=== PATIENT | female | born 1935 | race Caucasian/White ===

== ENCOUNTER 2019-01-02 17:36 | Inpatient (IN) | payer MEDICARE | END 2019-01-05 13:52 | disposition home or self-care (01) | LOC: ER 17:36 → ED HOLD 20:56 → PCU 3S 22:56 | PROC: 4A023N7 Measurement of Cardiac Sampling and Pressure, Left Heart, Percutaneous Approach (ICD-10-PCS; principal; ~2019-01-02) | DX: I21.4 Non-ST elevation (NSTEMI) myocardial infarction (principal); I48.91 Unspecified atrial fibrillation ==

== ENCOUNTER 2019-03-24 04:37 | Observation (INO) | payer MEDICARE ==
[~2019-03-24] VITALS: Ht 152.4 cm; Wt 63.6 kg
[~2019-03-24 04:37] MED LIST: ALEN70TA60 PO; APIX5TAB3 PO; ASPI-1265 PO; ATRNS; CALC-627 PO; CARI350T27 PO; CARV3.12 PO; D MANNOSE PO; DIVA-81 PO; LEVO25PO; LOSA25TA96 PO; NIFE30TA95 PO; NITR0.4T SL; PANT40TA4 PO; ROSU20TA2 PO; premarin VG
[2019-03-24 05:16] LABS: BASOPHILS % (AUTO) 0.6 % (0-1); EOSINOPHILS # (AUTO) 0.2 X10'3 (0-0.9); EOSINOPHILS % (AUTO) 3.6 % (0-6); HEMATOCRIT 39.2 % (35.0-45.0); HEMOGLOBIN 13.5 g/dl (12.0-16.0); LYMPHOCYTES # (AUTO) 1.9 X10'3 (1.1-4.8); MEAN CORPUSCULAR HEMOGLOBIN 32.4 PG (27.0-31.0); MEAN CORPUSCULAR HGB CONC 34.5 g/dL (33.0-36.5); MEAN CORPUSCULAR VOLUME 93.9 FL (78-98); MEAN PLATELET VOLUME 8.5 FL (7.4-10.4); MONOCYTES # (AUTO) 0.6 X10'3 (0-0.9); MONOCYTES % (AUTO) 9.7 % (2-12); NEUTROPHILS # (AUTO) 3.3 X10'3 (1.8-7.7); NEUTROPHILS % (AUTO) 55.1 % (42-75); PLATELET COUNT 336 X10'3 (140-440); RED BLOOD COUNT 4.17 X10'6 (4.20-5.60); RED CELL DISTRIBUTION WIDTH 13.7 % (11.5-14.5)
--- NOTE | 2019-03-24 06:04 | NUR ---
DR. PRICE TALKINIG WITH PT AND FAMILY ABOUT ADMISSION
[2019-03-24 06:05] LABS: PARTIAL THROMBOPLASTIN TIME 32 SECONDS (22-32)
[2019-03-24 06:09] LABS: ALANINE AMINOTRANSFERASE 19 U/L (12-78); ALBUMIN 3.7 G/DL (3.4-5.0); ALBUMIN/GLOBULIN RATIO 1.1 (1.1-1.5); ALKALINE PHOSPHATASE 86 IU/L (46-116); ANION GAP 10 (8-16); ASPARTATE AMINO TRANSFERASE 26 U/L (10-37); BILIRUBIN,TOTAL 0.3 MG/DL (0.1-1.0); BLOOD UREA NITROGEN 18 MG/DL (7-18); BUN/CREATININE RATIO 17.8 (6.6-38.0); CALCIUM 9.3 MG/DL (8.5-10.1); CHLORIDE 102 MMOL/L (99-107); CREATININE 1.01 MG/DL (0.40-0.90); GLUCOSE 96 MG/DL (70-104); SODIUM 136 MMOL/L (135-145); TOTAL CARBON DIOXIDE 23.9 MMOL/L (24-32); TOTAL PROTEIN 7.2 G/DL (6.4-8.2); eGFR 52 ML/MIN
[2019-03-24 06:10] LABS: POTASSIUM 4.3 MMOL/L (3.5-5.1)
[2019-03-24] MEDS ORDERED: nitroGLYCERIN 0.4mg SUBLingual tab SL PRN ×2 (07:45→10:50)
[2019-03-24] MEDS ORDERED: potassium Cl 20 mEq SR tablet PO PRN ×2 (07:45)
[2019-03-24] MEDS ORDERED: magnesium hydroxide 30ml (MOM) UD suspension PO PRN (07:45)
[2019-03-24] MEDS ORDERED: mag hydrox/Alum hydrox/simeth 30ml oral suspension PO PRN (07:45)
[2019-03-24] MEDS ORDERED: potassium Cl 40MEQ/NS 500ml 500 ML IV PRN (07:45)
[2019-03-24] MEDS ORDERED: magnesium Cl slow-release 64mg tablet PO PRN (07:45)
[2019-03-24] MEDS ORDERED: morphine 2 MG/ML inj. syringe IV PRN ×2 (07:45)
[2019-03-24] MEDS ORDERED: magnesium 4gm in 100ml NS 100 ML IV PRN (07:45)
[2019-03-24] MEDS ORDERED: potassium CL 10mEq/100ml bag 100 ML IV PRN (07:45)
[2019-03-24] MEDS ORDERED: acetaminophen 325mg tablet PO PRN ×2 (07:45)
[2019-03-24] MEDS ORDERED: magnesium 2GM in 50ml NS 50 ML IV PRN (07:45)
[2019-03-24] MEDS ORDERED: ondansetron/PF 4mg/2ml inj IV PRN (07:45)
[2019-03-24] MEDS ORDERED: K and/or MAG REPLACEMENT MC SCH (08:00)
[2019-03-24] MEDS ORDERED: losartan 25mg tablet PO SCH ×3 (09:10→20:00)
[2019-03-24] MEDS ORDERED: carVEDilol 3.125mg tablet PO SCH ×3 (09:10→20:00)
[2019-03-24 09:35] VITALS: BP 138/90
--- NOTE | 2019-03-24 10:38 | NUR ---
PAGED FOR MED REC PAGED DR. MOURA- "Re: new admit in [facility]. Patient meds have been reviewed if you can please do reconciliation. thank you, Josephine RIOJAS [phone]"
[2019-03-24] MEDS ORDERED: non-formulary drug (Alendronate Sodium* (Fosamax*) 1 TABLET) PO SCH (10:50)
[2019-03-24] MEDS ORDERED: carvedilol 6.25mg tablet PO SCH ×2 (10:50→20:00)
[2019-03-24] MEDS ORDERED: apixaban 5mg tablet PO ONE (10:50)
[2019-03-24 11:00] VITALS: BP 150/75
[2019-03-24] MEDS: calcium carbonate/vitamin D3 tablet PO SCH ×2 (11:58→17:30)
--- NOTE | 2019-03-24 12:01 | NUR ---
HOLDING ELIQUIS PAGED DR. MOURA- "Re: [facility] in 312. Eliquis ordered but I have not given it incase she needs to go to [facility]? thank you, Josephine [phone]" Addendum: 03/24/19 at 1216 by Josephine Joe RN SPOKE TO DR. MOURA ABOUT PATIENT'S ELIQUIS. IT IS THE PATIENT'S WISHES TO HOLD OFF ON TAKING ELIQUIS UNTIL ALL TROPONIN LAB DRAWS ARE DONE AND RESULTED. PER DR. MOURA THAT IS OKAY AND SHE CAN STAY UNDER OBSERVATION UNTIL TOMORROW NO FURTHER ORDERS/PLAN UNLESS PATIENT HAS CHEST PAIN AGAIN.
--- NOTE | 2019-03-24 12:16 | NUR ---
SPOKE WITH MIGUEL HENDRIX ABOUT PATIENT'S MEDICATIONS. BP 150/75 HR 86. RECEIVED ORDER TO INCREASE COREG TO 6.25 BID.
[2019-03-24 15:00] VITALS: BP 119/75
--- NOTE | 2019-03-24 17:33 | NUR ---
PAGED DR. MOURA, NEG TROP "Re; [facility], in 312. last troponin is negative. patient would like to go home. only increase on Coreg. Thank you, Josephine RIOJAS [phone]"
[2019-03-24 18:00] VITALS: BP 133/86
--- NOTE | 2019-03-24 18:11 | NUR ---
Problems reprioritized. Patient report given, questions answered & plan of care reviewed with LASHON DAVIS.
--- NOTE | 2019-03-24 18:16 | NUR ---
Patient in room MED 312. I have received report from Josephine OATES and had the opportunity to ask questions and assume patient care.
[2019-03-24] MEDS ORDERED: CARV6.253 PO (18:25)
--- NOTE | 2019-03-24 19:10 | NUR ---
Patient given all discharge instructions (her daughter as well) and she stated understanding and agreed with POC. IV to L hand removed, cath intact, no s/s of complications, and pt tolerated well. Pt taken via wheelchair to private vehicle driven by her daughter. They left without incident.
[2019-03-24] MEDS ORDERED: apixaban 5mg tablet PO SCH (20:00)
[2019-03-24] MEDS ORDERED: NIFEdipine XL 30mg tablet PO SCH (21:00)
[2019-03-24] MEDS ORDERED: divalproex sod 250mg ER (24-hour) tablet PO SCH (21:00)
[2019-03-25] MEDS ORDERED: atorvastatin 20mg tablet PO SCH (08:00)
[2019-03-25] MEDS ORDERED: pantoprazole 40mg Tablet.DR PO SCH (08:00)
== END 2019-03-24 19:10 | disposition home or self-care (01) ==
LOC: ER 04:38 → EDBEDREQ 08:38 → INTOOBSV 09:19 → MED 3N 09:19 → UNDOADMOB 09:19 → MED 3N 10:23 → CMPBEDREQ 15:44 → UNDODISOB 19:10
PROVIDERS: ADMIT Internal Medicine Interventional Cardiology; ATTEND Internal Medicine Interventional Cardiology
DX: R07.2 Precordial pain (principal); I48.91 Unspecified atrial fibrillation; I25.10 Atherosclerotic heart disease of native coronary artery without angina pectoris; I10 Essential (primary) hypertension; E78.00 Pure hypercholesterolemia, unspecified; Z88.0 Allergy status to penicillin; Z88.1 Allergy status to other antibiotic agents; Z79.82 Long term (current) use of aspirin
CPT/HCPCS: 36415; 71045; 80053; 84484; 85025; 85610; 85730; 93005; 99284; G0378

== ENCOUNTER 2019-10-18 06:26 | Day surgery (SDC) | payer MEDICARE ==
[2019-10-14 11:29] LABS: BASOPHILS # (AUTO) 0.1 X10'3 (0-0.2); BASOPHILS % (AUTO) 1.2 % (0-1); EOSINOPHILS # (AUTO) 0.1 X10'3 (0-0.9); EOSINOPHILS % (AUTO) 2.5 % (0-6); LYMPHOCYTES # (AUTO) 1.3 X10'3 (1.1-4.8); LYMPHOCYTES % (AUTO) 26.1 % (21-51); MEAN CORPUSCULAR HEMOGLOBIN 32.3 PG (27.0-31.0); MEAN CORPUSCULAR HGB CONC 34.1 g/dL (33.0-36.5); MEAN CORPUSCULAR VOLUME 94.6 FL (78-98); MEAN PLATELET VOLUME 8.9 FL (7.4-10.4); MONOCYTES # (AUTO) 0.4 X10'3 (0-0.9); MONOCYTES % (AUTO) 8.6 % (2-12); NEUTROPHILS # (AUTO) 3.1 X10'3 (1.8-7.7); NEUTROPHILS % (AUTO) 61.6 % (42-75); PRE OP HEMATOCRIT 39.3 % (35.0-45.0); PRE OP HEMOGLOBIN 13.4 g/dL (12.0-16.0); PRE OP PLATELET COUNT 331 X10'3 (140-440); RED BLOOD COUNT 4.16 X10'6 (4.20-5.60); RED CELL DISTRIBUTION WIDTH 13.8 % (11.5-14.5)
[2019-10-14 11:45] LABS: ALBUMIN 3.5 G/DL (3.4-5.0); ALKALINE PHOSPHATASE 62 IU/L (46-116); BLOOD UREA NITROGEN 14 MG/DL (7-18); BUN/CREATININE RATIO 15.9 (6.6-38.0); CALCIUM 9.1 MG/DL (8.5-10.1); CHLORIDE 107 MMOL/L (99-107); CREATININE 0.88 MG/DL (0.40-0.90); PRE OP ALT 20 U/L (30-65); PRE OP ANION GAP 7 (8-16); PRE OP AST 21 U/L (10-37); PRE OP BILIRUB, TOTAL 0.3 MG/DL (0.0-1.0); PRE OP GLUCOSE 81 MG/DL (70-104); PRE OP POTASSIUM 3.4 MMOL/L (3.4-5.1); PRE OP SODIUM 144 MMOL/L (135-145); eGFR 62 ML/MIN
[~2019-10-18] VITALS: Ht 152.4 cm; Wt 61.2 kg
[2019-10-18] VITALS (10 sets, daily range): BP systolic 113–140; BP diastolic 65–83
[~2019-10-18 06:26] MED LIST changes: -ASPI-1265 PO; -ATRNS; -CARI350T27 PO; -CARV3.12 PO; +CARV3.122 PO; -D MANNOSE PO; +IPRA30SP; +ISOS10TA8 PO; +L CARNITINE PO; +LACT1CAP65 PO; -LEVO25PO; +METHYL PRO PO; -NITR0.4T SL; +NITR0.4T48 SL; -PANT40TA4 PO; +PREVCR VG; +clindamycin-Cleocin 900mg/D5W 50 ML IV ONE; +famotidine 10mg tablet PO ONE; -premarin VG; +ringers solution, lacted 1,000 ML IV SCH
[2019-10-18] MEDS ORDERED: sevoflurane 250ml liquid IH ONE (08:10)
[2019-10-18] MEDS ORDERED: fentaNYL/PF 50MCG/1 ML 2ML syringe ONE (08:11)
[2019-10-18] MEDS ORDERED: midazolam 2 mg/2 ml injection ONE (08:12)
[2019-10-18] MEDS ORDERED: rocuronium 10mg/ml inj IV ONE (08:24)
[2019-10-18] MEDS ORDERED: propofol inj 20 ML IV ONE (08:24)
[2019-10-18] MEDS ORDERED: dexamethasone sod phosphate 4mg/ml inj. ONE (08:24)
[2019-10-18] MEDS ORDERED: LIDOcaine 1% 30ml preserv. free vial ONE (08:57)
[2019-10-18] MEDS ORDERED: BUPIVAcaine/PF 2.5 mg/ml (0.25%) 30ml vial ONE (08:57)
[2019-10-18] MEDS ORDERED: ringers solution, lacted 1,000 ML IV SCH (09:07)
[2019-10-18] MEDS ORDERED: ondansetron/PF 4mg/2ml inj IV PRN (09:10)
[2019-10-18] MEDS ORDERED: meperidine/PF 25mg/ml syringe IV PRN ×3 (09:10)
[2019-10-18] MEDS ORDERED: proCHLORperazine 10 MG/2 ml inj IV PRN (09:10)
[2019-10-18] MEDS ORDERED: morphine 4 MG/ML inj SYRINge IV PRN ×2 (09:10)
[2019-10-18] MEDS ORDERED: ondansetron/PF 4mg/2ml inj ONE (09:24)
[2019-10-18] MEDS ORDERED: sugammadex 200mg/2ml injection IV ONE (09:29)
[2019-10-18] MEDS ORDERED: HYDROcodone/acetaminophen 5mg/325mg tablet PO PRN (09:45)
--- NOTE | 2019-10-18 09:45 | NUR ---
ADMITTED TO PACU FROM OR ACCOMPANIED BY ANESTHESIA. INTIAL PHYSICAL ASSESSMENT DONE AND RECORDED. REPORT RECEIVED FROM ANESTHESIA.
--- NOTE | 2019-10-18 11:15 | NUR ---
DISCHARGE CRITERIA MET, DISCHARGE INSTRUCTIONS GIVEN, DEMONSTRATES VERBAL UNDERSTANDING. DISCHARGED HOME IN GOOD CONDITION. RX CALLED TO [facility] FOR ZOFRAN 4MG Q6HR #30. DISCHARGED WITH PAIN RESLOVED ACCOMPANIED BY FAMILY
== END 2019-10-18 11:15 | disposition home or self-care (01) ==
LOC: PAS 06:26
PROVIDERS: ATTEND Surgery
DX: K43.2 Incisional hernia without obstruction or gangrene (principal); I10 Essential (primary) hypertension; I48.91 Unspecified atrial fibrillation; I25.10 Atherosclerotic heart disease of native coronary artery without angina pectoris; G47.30 Sleep apnea, unspecified; I25.2 Old myocardial infarction; G43.909 Migraine, unspecified, not intractable, without status migrainosus; M19.90 Unspecified osteoarthritis, unspecified site; Z86.73 Personal history of transient ischemic attack (TIA), and cerebral infarction without residual deficits; Z79.899 Other long term (current) drug therapy; Z88.0 Allergy status to penicillin; Z88.2 Allergy status to sulfonamides; Z88.8 Allergy status to other drugs, medicaments and biological substances; Z88.1 Allergy status to other antibiotic agents; Z90.710 Acquired absence of both cervix and uterus; Z96.643 Presence of artificial hip joint, bilateral; Z98.41 Cataract extraction status, right eye; Z98.42 Cataract extraction status, left eye; Z98.1 Arthrodesis status
CPT/HCPCS: 36415; 49654; 80053; 82948; 85025; C1781; C9399; J1100; J2001; J2175; J2250; J2405; J2704; J3010; J3490; J7120; S2900; A4215; A4618

== ENCOUNTER 2020-10-11 12:04 | Emergency (ER) | payer MEDICARE ==
[~2020-10-11] VITALS: Ht 152.4 cm; Wt 59.1 kg
[~2020-10-11 12:04] MED LIST changes: -ISOS10TA8 PO; +ISOS30TA6 PO; -L CARNITINE PO; +LEVO500T86 PO; -LOSA25TA96 PO; +MULT-687 PO; -ROSU20TA2 PO; +ROSU20TA31 PO; +TIOT4MIS2 IH; -clindamycin-Cleocin 900mg/D5W 50 ML IV ONE; -famotidine 10mg tablet PO ONE; -ringers solution, lacted 1,000 ML IV SCH
--- NOTE | 2020-10-11 12:29 | NUR ---
patient's son Rasheed Murray phone number [phone]
[2020-10-11 13:11] LABS: BASOPHILS # (AUTO) 0.1 X10'3 (0-0.2); BASOPHILS % (AUTO) 1.4 % (0-1); EOSINOPHILS # (AUTO) 0.2 X10'3 (0-0.9); EOSINOPHILS % (AUTO) 2.6 % (0-6); HEMATOCRIT 38.9 % (35.0-45.0); HEMOGLOBIN 13.2 g/dl (12.0-16.0); LYMPHOCYTES # (AUTO) 1.6 X10'3 (1.1-4.8); LYMPHOCYTES % (AUTO) 26.8 % (21-51); MEAN CORPUSCULAR HEMOGLOBIN 32.2 PG (27.0-31.0); MEAN CORPUSCULAR VOLUME 94.9 FL (78-98); MEAN PLATELET VOLUME 8.5 FL (7.4-10.4); MONOCYTES # (AUTO) 0.6 X10'3 (0-0.9); MONOCYTES % (AUTO) 10.4 % (2-12); NEUTROPHILS # (AUTO) 3.6 X10'3 (1.8-7.7); NEUTROPHILS % (AUTO) 58.8 % (42-75); PLATELET COUNT 382 X10'3 (140-440); RED CELL DISTRIBUTION WIDTH 14.3 % (11.5-14.5); WHITE BLOOD COUNT 6.1 X10'3 (4.5-11.0)
[2020-10-11] MEDS ORDERED: acetaminophen 325mg tablet PO ONE (13:25)
[2020-10-11 13:33] LABS: ALANINE AMINOTRANSFERASE 26 U/L (12-78); ALBUMIN 3.7 G/DL (3.4-5.0); ALKALINE PHOSPHATASE 74 IU/L (46-116); ANION GAP 11 (8-16); ASPARTATE AMINO TRANSFERASE 27 U/L (10-37); BILIRUBIN,TOTAL 0.4 MG/DL (0.1-1.0); BLOOD UREA NITROGEN 16 MG/DL (7-18); CALCIUM 9.2 MG/DL (8.5-10.1); CHLORIDE 107 MMOL/L (99-107); CREATININE 0.84 MG/DL (0.40-0.90); GLUCOSE 92 MG/DL (70-104); POTASSIUM 3.8 MMOL/L (3.5-5.1); SODIUM 144 MMOL/L (135-145); TOTAL CARBON DIOXIDE 26.1 MMOL/L (24-32); TOTAL PROTEIN 7.3 G/DL (6.4-8.2); eGFR 65 ML/MIN
[2020-10-11] MEDS ORDERED: iohexol 350MG/ML 100ml bottle IV ONE (14:55)
--- NOTE | 2020-10-11 15:58 | NUR ---
pT GAVE VERBAL CONSENT TO UPDATE FAMILY ON STATUS. SPOKE WITH DEZ, SON WITH DX. HE REQUESTED SISTER FUAD [phone]) BE CONTACTED FOR TRANSPORT, UNDERSTANDING IT WILL BE ABOUT 45 MINUTES FROM TIME OF CONTACT. Addendum: 10/11/20 at 1711 by RSTEWART ec: DAUGHTER'S NAME IS Yessica, NOT Fuad
[2020-10-11] MEDS ORDERED: oxyCODONE IR 5mg (immed. release) tablet PO ONE (16:05)
--- NOTE | 2020-10-11 17:11 | NUR ---
MIGUEL CONTACTED FOR TRANSPORTATION
[2020-10-11 17:26] VITALS: BP 166/90
== END 2020-10-11 17:47 | disposition home or self-care (01) ==
LOC: ER 12:05
DX: M54.6 Pain in thoracic spine (principal); R07.89 Other chest pain; R51.9 Headache, unspecified; I48.91 Unspecified atrial fibrillation; I25.10 Atherosclerotic heart disease of native coronary artery without angina pectoris; E78.00 Pure hypercholesterolemia, unspecified; I10 Essential (primary) hypertension; Z88.2 Allergy status to sulfonamides; Z88.0 Allergy status to penicillin; Z88.1 Allergy status to other antibiotic agents; Z88.8 Allergy status to other drugs, medicaments and biological substances; Z79.899 Other long term (current) drug therapy
CPT/HCPCS: 36415; 71045; 71275; 80053; 83880; 84484; 85025; 93005; 99285; Q9967

== ENCOUNTER 2021-07-26 19:11 | Emergency (ER) | payer MEDICARE ==
[~2021-07-26] VITALS: Ht 152.4 cm; Wt 55.0 kg
[~2021-07-26 19:11] MED LIST changes: -ISOS30TA6 PO; +ISOS30TA84 PO
[2021-07-26] MEDS ORDERED: DIVA500T9 PO (20:03)
[2021-07-26 20:41] LABS: BASOPHILS # (AUTO) 0.1 X10'3 (0-0.2); BASOPHILS % (AUTO) 1.3 % (0-1); EOSINOPHILS # (AUTO) 0.2 X10'3 (0-0.9); EOSINOPHILS % (AUTO) 3.6 % (0-6); HEMATOCRIT 38.4 % (35.0-45.0); HEMOGLOBIN 13.2 g/dl (12.0-16.0); LYMPHOCYTES # (AUTO) 1.9 X10'3 (1.1-4.8); LYMPHOCYTES % (AUTO) 28.7 % (21-51); MEAN CORPUSCULAR HEMOGLOBIN 33.4 PG (27.0-31.0); MEAN CORPUSCULAR HGB CONC 34.4 g/dL (33.0-36.5); MEAN PLATELET VOLUME 8.8 FL (7.4-10.4); MONOCYTES # (AUTO) 0.8 X10'3 (0-0.9); MONOCYTES % (AUTO) 12.4 % (2-12); NEUTROPHILS # (AUTO) 3.5 X10'3 (1.8-7.7); PLATELET COUNT 414 X10'3 (140-440); RED BLOOD COUNT 3.96 X10'6 (4.20-5.60); RED CELL DISTRIBUTION WIDTH 15.3 % (11.5-14.5); WHITE BLOOD COUNT 6.5 X10'3 (4.5-11.0)
[2021-07-26 20:48] LABS: D-DIMER < 0.19 MG/L FEU (0-0.50)
[2021-07-26 20:53] LABS: ALANINE AMINOTRANSFERASE 21 U/L (12-78); ALBUMIN/GLOBULIN RATIO 0.9 (1.1-1.5); ALKALINE PHOSPHATASE 73 IU/L (46-116); ANION GAP 6 (8-16); ASPARTATE AMINO TRANSFERASE 21 U/L (10-37); BILIRUBIN,TOTAL 0.3 MG/DL (0.1-1.0); BLOOD UREA NITROGEN 24 MG/DL (7-18); CALCIUM 8.4 MG/DL (8.5-10.1); CHLORIDE 104 MMOL/L (99-107); CREATININE 0.96 MG/DL (0.40-0.90); GLUCOSE 101 MG/DL (70-104); SODIUM 141 MMOL/L (135-145); TOTAL CARBON DIOXIDE 30.6 MMOL/L (24-32); TOTAL PROTEIN 6.4 G/DL (6.4-8.2); eGFR 55 ML/MIN
[2021-07-26 21:06] LABS: MAGNESIUM 2.3 MG/DL (1.5-2.4)
[2021-07-26] MEDS ORDERED: mag hydrox/Alum hydrox/simeth 30ml oral suspension PO ONE (21:30)
[2021-07-26 22:12] VITALS: BP 155/87
== END 2021-07-26 22:14 | disposition home or self-care (01) ==
LOC: ER 19:11
DX: R07.89 Other chest pain (principal); Z20.822 Contact with and (suspected) exposure to COVID-19; R11.0 Nausea; I10 Essential (primary) hypertension; I48.91 Unspecified atrial fibrillation; I25.10 Atherosclerotic heart disease of native coronary artery without angina pectoris; E78.00 Pure hypercholesterolemia, unspecified; J45.909 Unspecified asthma, uncomplicated; Z88.0 Allergy status to penicillin; Z88.2 Allergy status to sulfonamides; Z88.8 Allergy status to other drugs, medicaments and biological substances; Z88.1 Allergy status to other antibiotic agents; Z79.899 Other long term (current) drug therapy
CPT/HCPCS: 36415; 71045; 80053; 83735; 83880; 84484; 85025; 85379; 85610; 87635; 93005; 99285; C9803

== ENCOUNTER 2021-11-06 20:30 | Emergency (ER) | payer MEDICARE ==
[~2021-11-06] VITALS: Ht 152.4 cm; Wt 55.0 kg
[~2021-11-06 20:30] MED LIST changes: -DIVA-81 PO; +DIVA500T9 PO; -NIFE30TA95 PO
[2021-11-06 22:02] LABS: BASOPHILS % (AUTO) 0.3 % (0-1); EOSINOPHILS # (AUTO) 0.1 X10'3 (0-0.9); EOSINOPHILS % (AUTO) 2.3 % (0-6); HEMATOCRIT 39.6 % (35.0-45.0); HEMOGLOBIN 13.6 g/dl (12.0-16.0); LYMPHOCYTES # (AUTO) 1.6 X10'3 (1.1-4.8); LYMPHOCYTES % (AUTO) 30.2 % (21-51); MEAN CORPUSCULAR HEMOGLOBIN 33.4 PG (27.0-31.0); MEAN CORPUSCULAR HGB CONC 34.4 g/dL (33.0-36.5); MEAN CORPUSCULAR VOLUME 97.1 FL (78-98); MEAN PLATELET VOLUME 7.8 FL (7.4-10.4); MONOCYTES # (AUTO) 0.6 X10'3 (0-0.9); MONOCYTES % (AUTO) 10.7 % (2-12); NEUTROPHILS # (AUTO) 3.1 X10'3 (1.8-7.7); NEUTROPHILS % (AUTO) 56.5 % (42-75); PLATELET COUNT 484 X10'3 (140-440); RED BLOOD COUNT 4.08 X10'6 (4.20-5.60); RED CELL DISTRIBUTION WIDTH 14.1 % (11.5-14.5); WHITE BLOOD COUNT 5.4 X10'3 (4.5-11.0)
[2021-11-06 22:15] LABS: CLARITY,URINE CLOUDY (Clear); GLUCOSE, URINE NEGATIVE (Neg); KETONES,URINE NEGATIVE (Neg); LEUKOCYTE ESTERASE ,URINE TRACE (Neg); NITRITES, URINE NEGATIVE (Neg); OCCULT BLOOD,URINE SMALL (Neg); PH,URINE 7.5 (4.8-8.0); PROTEIN,URINE NEGATIVE (Neg); UROBILINOGEN,URINE 0.2 E.U/dL (0.2-1.0)
[2021-11-06 22:15] LABS: ALANINE AMINOTRANSFERASE 17 U/L (12-78); ALBUMIN 3.5 G/DL (3.4-5.0); ALBUMIN/GLOBULIN RATIO 1.1 (1.1-1.5); ALKALINE PHOSPHATASE 72 IU/L (46-116); ANION GAP 9 (8-16); ASPARTATE AMINO TRANSFERASE 22 U/L (10-37); BILIRUBIN,TOTAL 0.3 MG/DL (0.1-1.0); BLOOD UREA NITROGEN 19 MG/DL (7-18); BUN/CREATININE RATIO 24.4 (6.6-38.0); CALCIUM 9.1 MG/DL (8.5-10.1); CHLORIDE 105 MMOL/L (99-107); CREATININE 0.78 MG/DL (0.40-0.90); GLUCOSE 113 MG/DL (70-104); POTASSIUM 3.5 MMOL/L (3.5-5.1); SODIUM 140 MMOL/L (135-145); TOTAL CARBON DIOXIDE 25.9 MMOL/L (24-32); TOTAL PROTEIN 6.7 G/DL (6.4-8.2); eGFR 70 ML/MIN
[2021-11-06 22:16] LABS: COLOR,URINE STRAW (Yellow); UA COLLECTION TYPE CLN CATCH MIDSTREAM
[2021-11-06 22:21] LABS: SQUAMOUS EPITHELIAL CELL,UR FEW /LPF (FEW)
[2021-11-06 22:23] LABS: BACTERIA,URINE 4+ /HPF (Neg); WBC,URINE 0-4 /HPF (0-4)
[2021-11-06] MEDS ORDERED: potassium Cl 20 mEq SR tablet PO STA (22:34)
[2021-11-06] MEDS ORDERED: acetaminophen 325mg tablet PO ONE (22:40)
[2021-11-06 23:10] VITALS: BP 152/96
== END 2021-11-06 23:14 | disposition home or self-care (01) ==
LOC: ER 20:31
DX: E87.6 Hypokalemia (principal); R00.2 Palpitations; R06.02 Shortness of breath; R51.9 Headache, unspecified; I48.91 Unspecified atrial fibrillation; I25.10 Atherosclerotic heart disease of native coronary artery without angina pectoris; E78.00 Pure hypercholesterolemia, unspecified; I10 Essential (primary) hypertension; J45.909 Unspecified asthma, uncomplicated; Z88.0 Allergy status to penicillin; Z88.2 Allergy status to sulfonamides; Z88.1 Allergy status to other antibiotic agents; Z88.8 Allergy status to other drugs, medicaments and biological substances; Z79.899 Other long term (current) drug therapy
CPT/HCPCS: 36415; 71045; 80053; 81001; 83880; 84484; 85025; 87077; 87088; 87186; 93005; 99285

== ENCOUNTER 2022-04-09 16:15 | Emergency (ER) | payer MEDICARE ==
[~2022-04-09] VITALS: Ht 152.4 cm; Wt 55.5 kg
[2022-04-09 17:38] LABS: BASOPHILS # (AUTO) 0.1 X10'3 (0-0.2); BASOPHILS % (AUTO) 1.5 % (0-1); EOSINOPHILS # (AUTO) 0.1 X10'3 (0-0.9); EOSINOPHILS % (AUTO) 1.9 % (0-6); HEMATOCRIT 40.9 % (35.0-45.0); HEMOGLOBIN 14.1 g/dl (12.0-16.0); LYMPHOCYTES # (AUTO) 1.4 X10'3 (1.1-4.8); LYMPHOCYTES % (AUTO) 21.9 % (21-51); MEAN CORPUSCULAR HGB CONC 34.4 g/dL (33.0-36.5); MONOCYTES # (AUTO) 0.6 X10'3 (0-0.9); MONOCYTES % (AUTO) 9.7 % (2-12); NEUTROPHILS # (AUTO) 4.1 X10'3 (1.8-7.7); PLATELET COUNT 545 X10'3 (140-440); RED BLOOD COUNT 4.26 X10'6 (4.20-5.60); RED CELL DISTRIBUTION WIDTH 15.1 % (11.5-14.5); WHITE BLOOD COUNT 6.3 X10'3 (4.5-11.0)
[2022-04-09 17:54] LABS: ALANINE AMINOTRANSFERASE 14 U/L (12-78); ALBUMIN 3.6 G/DL (3.4-5.0); ALKALINE PHOSPHATASE 72 IU/L (46-116); ANION GAP 8 (8-16); ASPARTATE AMINO TRANSFERASE 23 U/L (10-37); BILIRUBIN,TOTAL 0.3 MG/DL (0.1-1.0); BLOOD UREA NITROGEN 17 MG/DL (7-18); BUN/CREATININE RATIO 20.2 (6.6-38.0); CALCIUM 8.9 MG/DL (8.5-10.1); CHLORIDE 101 MMOL/L (99-107); CREATININE 0.84 MG/DL (0.40-0.90); GLUCOSE 92 MG/DL (70-104); POTASSIUM 3.8 MMOL/L (3.5-5.1); SODIUM 138 MMOL/L (135-145); TOTAL CARBON DIOXIDE 28.8 MMOL/L (24-32); TOTAL PROTEIN 7.2 G/DL (6.4-8.2); eGFR 64 ML/MIN
[2022-04-09] MEDS ORDERED: cloNIDine 0.1 mg tablet PO STA (17:57)
[2022-04-09 19:13] VITALS: BP 164/100
== END 2022-04-09 18:47 | disposition home or self-care (01) ==
LOC: ER 16:16
DX: I10 Essential (primary) hypertension (principal); R51.9 Headache, unspecified; R42 Dizziness and giddiness; I48.91 Unspecified atrial fibrillation; I25.10 Atherosclerotic heart disease of native coronary artery without angina pectoris; E78.00 Pure hypercholesterolemia, unspecified; J45.909 Unspecified asthma, uncomplicated; Z88.0 Allergy status to penicillin; Z88.2 Allergy status to sulfonamides; Z88.1 Allergy status to other antibiotic agents; Z88.8 Allergy status to other drugs, medicaments and biological substances; Z79.899 Other long term (current) drug therapy
CPT/HCPCS: 36415; 71045; 80053; 84484; 85025; 93005; 99285

== ENCOUNTER 2023-08-12 12:37 | Outpatient (CLI) | payer MEDICARE ==
[~2023-08-12 12:37] MED LIST changes: +LEVO-43 PO; -LEVO500T86 PO; -ROSU20TA31 PO; +ROSU20TA73 PO
== END 2023-08-12 23:59 | disposition home or self-care (01) ==
LOC: RAD 12:37
PROVIDERS: ATTEND Nurse Practitioner Family
DX: R13.12 Dysphagia, oropharyngeal phase (principal); R49.0 Dysphonia
CPT/HCPCS: 74230

== ENCOUNTER 2024-01-15 19:09 | Inpatient (IN) | payer MEDICARE ==
[~2024-01-15] VITALS: Ht 152.4 cm; Wt 70.7 kg
[~2024-01-15 19:09] MED LIST changes: -CALC-627 PO; -CARV3.122 PO; +CARV6.2553 PO; +FERR325T29 PO; +LEVO15TA5 PO; -METHYL PRO PO; +OSC500T PO; -TIOT4MIS2 IH
[2024-01-15 20:02] LABS: URINE HCG NEGATIVE (NEG)
[2024-01-15 20:14] LABS: BILIRUBIN,URINE NEGATIVE (Neg); CLARITY,URINE CLEAR (Clear); COLOR,URINE STRAW (Yellow); GLUCOSE, URINE NEGATIVE (Neg); KETONES,URINE NEGATIVE (Neg); LEUKOCYTE ESTERASE ,URINE NEGATIVE (Neg); NITRITES, URINE NEGATIVE (Neg); OCCULT BLOOD,URINE SMALL (Neg); PH,URINE 7.5 (4.8-8.0); PROTEIN,URINE NEGATIVE (Neg); UROBILINOGEN,URINE 0.2 E.U/dL (0.2-1.0)
[2024-01-15 20:21] LABS: BASOPHILS % (AUTO) 0.9 % (0-1); EOSINOPHILS # (AUTO) 0.1 X10'3 (0-0.9); HEMATOCRIT 39.6 % (35.0-45.0); HEMOGLOBIN 13.4 g/dl (12.0-16.0); LYMPHOCYTES # (AUTO) 1.8 X10'3 (1.1-4.8); LYMPHOCYTES % (AUTO) 40.6 % (21-51); MEAN CORPUSCULAR HEMOGLOBIN 32.8 PG (27.0-31.0); MEAN CORPUSCULAR HGB CONC 33.9 g/dL (33.0-36.5); MEAN CORPUSCULAR VOLUME 96.9 FL (78-98); MEAN PLATELET VOLUME 7.5 FL (7.4-10.4); MONOCYTES # (AUTO) 0.5 X10'3 (0-0.9); MONOCYTES % (AUTO) 11.6 % (2-12); NEUTROPHILS % (AUTO) 44.9 % (42-75); PLATELET COUNT 532 X10'3 (140-440); RED BLOOD COUNT 4.09 X10'6 (4.20-5.60); RED CELL DISTRIBUTION WIDTH 16.2 % (11.5-14.5); WHITE BLOOD COUNT 4.5 X10'3 (4.5-11.0)
[2024-01-15 20:35] LABS: ALANINE AMINOTRANSFERASE 24 U/L (12-78); ALBUMIN 3.5 G/DL (3.4-5.0); ALBUMIN/GLOBULIN RATIO 0.9 (1.1-1.5); ALKALINE PHOSPHATASE 79 IU/L (46-116); ANION GAP 10 (8-16); ASPARTATE AMINO TRANSFERASE 29 U/L (10-37); BILIRUBIN,TOTAL 0.3 MG/DL (0.1-1.0); BLOOD UREA NITROGEN 22 MG/DL (7-18); BUN/CREATININE RATIO 28.9 (10.0-20.0); CALCIUM 9.5 MG/DL (8.5-10.1); CHLORIDE 102 MMOL/L (99-107); CREATININE 0.76 MG/DL (0.40-0.90); GLUCOSE 112 MG/DL (70-104); LIPASE 44 U/L (16-77); POTASSIUM 3.9 MMOL/L (3.5-5.1); SODIUM 140 MMOL/L (135-145); TOTAL PROTEIN 7.2 G/DL (6.4-8.2); eCRCL 37 ML/MIN; eGFR 72 ML/MIN
[2024-01-15 20:54] LABS: SQUAMOUS EPITHELIAL CELL,UR NONE SEEN /LPF (FEW); UA COLLECTION TYPE VOIDED
[2024-01-15 20:55] LABS: BACTERIA,URINE 3+ /HPF (Neg); WBC,URINE 0-4 /HPF (0-4)
[2024-01-15] MEDS: HYDROmorphone inj. 0.5 MG/0.5 ML DISP.SYRIN IV ONE (20:59)
[2024-01-15] MEDS: ondansetron/PF 4mg/2ml inj IV ONE (21:00)
[2024-01-15] MEDS: pantoprazole 40MG/NS 100ML BAG 100 ML IV ONE (21:24)
[2024-01-15] MEDS ORDERED: iohexol 350MG/ML 100ml bottle IV ONE (21:51)
[2024-01-15 22:02] LABS: AMYLASE 57 U/L (25-115)
[2024-01-15] MEDS: diatr meglu/diatrizoate 30ml oral sol.-(3 dose) bottle PO SCH (23:04)
[2024-01-15] MEDS: normal saline 1000ml 1,000 ML IV ONE (23:04)
[2024-01-15] MEDS ORDERED: acetaminophen 325mg tablet PO PRN (23:40)
[2024-01-15] MEDS ORDERED: magnesium hydroxide 30ml (MOM) UD suspension PO PRN (23:40)
[2024-01-15] MEDS ORDERED: normal saline 1000ml 1,000 ML IV SCH (23:40)
[2024-01-15] MEDS ORDERED: potassium Cl 20 mEq SR tablet PO PRN ×2 (23:40)
[2024-01-15] MEDS ORDERED: magnesium 4gm in 100ml NS 100 ML IV PRN (23:40)
[2024-01-15] MEDS ORDERED: magnesium Cl slow-release 64mg tablet PO PRN (23:40)
[2024-01-16] VITALS (9 sets, daily range): BP systolic 135–180; BP diastolic 72–90; PULSE 60–90; RESP 15–26; TEMP 97–97.7; O2SAT 94–97
[2024-01-16] MEDS: HYDROmorphone inj. 0.5 MG/0.5 ML DISP.SYRIN IV PRN ×2 (00:57→04:47)
[2024-01-16] MEDS: ringers solution, lacted 1,000 ML IV SCH (01:05)
[2024-01-16 02:04] LABS: BASOPHILS % (AUTO) 0.4 % (0-1); EOSINOPHILS % (AUTO) 0.1 % (0-6); HEMATOCRIT 38.5 % (35.0-45.0); HEMOGLOBIN 13.2 g/dl (12.0-16.0); LYMPHOCYTES # (AUTO) 0.8 X10'3 (1.1-4.8); LYMPHOCYTES % (AUTO) 11.1 % (21-51); MEAN CORPUSCULAR HGB CONC 34.2 g/dL (33.0-36.5); MEAN CORPUSCULAR VOLUME 96.5 FL (78-98); MEAN PLATELET VOLUME 7.5 FL (7.4-10.4); MONOCYTES # (AUTO) 0.3 X10'3 (0-0.9); MONOCYTES % (AUTO) 4.2 % (2-12); NEUTROPHILS # (AUTO) 6.1 X10'3 (1.8-7.7); NEUTROPHILS % (AUTO) 84.2 % (42-75); PLATELET COUNT 459 X10'3 (140-440); RED BLOOD COUNT 3.99 X10'6 (4.20-5.60); RED CELL DISTRIBUTION WIDTH 16.1 % (11.5-14.5); WHITE BLOOD COUNT 7.3 X10'3 (4.5-11.0)
[2024-01-16 02:12] LABS: ALANINE AMINOTRANSFERASE 26 U/L (12-78); ALBUMIN 3.1 G/DL (3.4-5.0); ALBUMIN/GLOBULIN RATIO 0.9 (1.1-1.5); ALKALINE PHOSPHATASE 62 IU/L (46-116); ANION GAP 10 (8-16); ASPARTATE AMINO TRANSFERASE 24 U/L (10-37); BILIRUBIN,TOTAL 0.3 MG/DL (0.1-1.0); BLOOD UREA NITROGEN 20 MG/DL (7-18); BUN/CREATININE RATIO 24.7 (10.0-20.0); CALCIUM 8.8 MG/DL (8.5-10.1); CHLORIDE 103 MMOL/L (99-107); CREATININE 0.81 MG/DL (0.40-0.90); GLUCOSE 150 MG/DL (70-104); POTASSIUM 3.5 MMOL/L (3.5-5.1); SODIUM 140 MMOL/L (135-145); TOTAL CARBON DIOXIDE 27.1 MMOL/L (24-32); TOTAL PROTEIN 6.5 G/DL (6.4-8.2); eCRCL 35 ML/MIN; eGFR 67 ML/MIN
[2024-01-16] MEDS: ondansetron/PF 4mg/2ml inj IV PRN (03:04)
[2024-01-16] MEDS: hydrALAZINE 20mg/ml inj. IV SCH (03:04)
[2024-01-16] MEDS: acetaminophen 1,000mg/100ml IV 100 ML IV ONE (04:41)
[2024-01-16] MEDS: docusate sod 100mg capsule PO SCH (08:00)
[2024-01-16] MEDS ORDERED: niCARdipine I.V. 50 MG in normal saline 250ml IV soln 230 ML IV SCH (13:25)
[2024-01-16] MEDS ORDERED: niCARDipine-NS 40mg/200ml IVPB 200 ML IV SCH (13:35)
[2024-01-16] MEDS: doxycycline inj 100 MG in normal saline 100ml IV soln 100 ML IV SCH (21:28)
[2024-01-17] VITALS (20 sets, daily range): BP systolic 112–194; BP diastolic 51–111; PULSE 62–95; RESP 12–24; TEMP 97–98.8; O2SAT 90–98
[2024-01-17 05:45] LABS: BASOPHILS % (AUTO) 0 % (0-1); EOSINOPHILS % (AUTO) 0 % (0-6); HEMATOCRIT 36.9 % (35.0-45.0); HEMOGLOBIN 12.5 g/dl (12.0-16.0); LYMPHOCYTES # (AUTO) 1.2 X10'3 (1.1-4.8); LYMPHOCYTES % (AUTO) 13.6 % (21-51); MEAN CORPUSCULAR HEMOGLOBIN 32.9 PG (27.0-31.0); MEAN CORPUSCULAR VOLUME 96.9 FL (78-98); MEAN PLATELET VOLUME 7.7 FL (7.4-10.4); MONOCYTES # (AUTO) 0.8 X10'3 (0-0.9); MONOCYTES % (AUTO) 9.4 % (2-12); NEUTROPHILS # (AUTO) 6.9 X10'3 (1.8-7.7); PLATELET COUNT 504 X10'3 (140-440); RED CELL DISTRIBUTION WIDTH 16.5 % (11.5-14.5)
[2024-01-17 05:50] LABS: ALANINE AMINOTRANSFERASE 21 U/L (12-78); ALBUMIN 3.4 G/DL (3.4-5.0); ALBUMIN/GLOBULIN RATIO 1.3 (1.1-1.5); ALKALINE PHOSPHATASE 38 IU/L (46-116); ANION GAP 7 (8-16); ASPARTATE AMINO TRANSFERASE 29 U/L (10-37); BILIRUBIN,TOTAL 0.4 MG/DL (0.1-1.0); BLOOD UREA NITROGEN 25 MG/DL (7-18); BUN/CREATININE RATIO 29.8 (10.0-20.0); CHLORIDE 105 MMOL/L (99-107); CREATININE 0.84 MG/DL (0.40-0.90); GLUCOSE 107 MG/DL (70-104); POTASSIUM 3.6 MMOL/L (3.5-5.1); SODIUM 141 MMOL/L (135-145); TOTAL CARBON DIOXIDE 29.4 MMOL/L (24-32); eCRCL 34 ML/MIN; eGFR 64 ML/MIN
[2024-01-17] MEDS ORDERED: sevoflurane 250ml liquid IH ONE (13:38)
[2024-01-17] MEDS ORDERED: fentaNYL/PF 50MCG/1 ML 2ML syringe ONE (13:38)
[2024-01-17] MEDS ORDERED: rocuronium 10mg/ml inj IV ONE (13:40)
[2024-01-17] MEDS ORDERED: propofol inj 20 ML IV ONE (13:40)
[2024-01-17] MEDS ORDERED: clindamycin-Cleocin 900mg/D5W 50 ML IV ONE (14:06)
[2024-01-17] MEDS: BUPIVACAINE liposomal/PF 13.3 MG/ML vial IM ONE (14:29)
[2024-01-17] MEDS: BUPIVAcaine/PF 2.5mg/ml (0.25%) 10ml vial ONE (14:34)
[2024-01-17] MEDS ORDERED: BUPIVAcaine/PF 2.5mg/ml (0.25%) 10ml vial ONE (14:45)
[2024-01-17] MEDS ORDERED: neostigmine methylsulfate 1 MG/ML 10ml vial ONE (15:18)
[2024-01-17] MEDS ORDERED: dexamethasone sod phosphate 4mg/ml inj. ONE (15:18)
[2024-01-17] MEDS ORDERED: glycopyrrolate 0.2mg/ml inj ONE (15:18)
[2024-01-17] MEDS ORDERED: ondansetron/PF 4mg/2ml inj ONE (15:19)
[2024-01-17] MEDS ORDERED: ondansetron/PF 4mg/2ml inj IV PRN ×2 (15:20→15:45)
[2024-01-17] MEDS ORDERED: naloxone 0.4 mg/ml inj IV PRN (15:20)
[2024-01-17] MEDS ORDERED: HYDROmorphone/PF 0.2 MG/ML SYRINGE IV PRN ×2 (15:45)
[2024-01-17] MEDS ORDERED: labetalol 20mg/4ml (5mg/ml) syringe IV PRN (15:45)
[2024-01-17] MEDS ORDERED: meperidine/PF 25mg/ml syringe IV PRN ×3 (15:45)
[2024-01-17] MEDS: ringers solution, lacted 1,000 ML IV SCH (15:54)
[2024-01-17] MEDS: acetaminophen 1,000mg/100ml IV 100 ML IV ONE (15:56)
[2024-01-17] MEDS: hydrALAZINE 20mg/ml inj. IV PRN (16:00)
[2024-01-17] MEDS: diphenhydrAMINE 50 mg/ml inj IV ONE (16:10)
[2024-01-17] MEDS ORDERED: diphenhydrAMINE 25mg capsule PO PRN (19:35)
[2024-01-18] VITALS (25 sets, daily range): BP systolic 142–173; BP diastolic 74–99; PULSE 68–92; RESP 10–23; TEMP 97.4–99; O2SAT 90–99
[2024-01-18] MEDS: hydrALAZINE 20mg/ml inj. IV ONE (06:23)
[2024-01-18 07:25] LABS: BASOPHILS % (AUTO) 0.1 % (0-1); EOSINOPHILS % (AUTO) 0 % (0-6); HEMATOCRIT 36.3 % (35.0-45.0); HEMOGLOBIN 12.5 g/dl (12.0-16.0); LYMPHOCYTES # (AUTO) 0.8 X10'3 (1.1-4.8); LYMPHOCYTES % (AUTO) 9.9 % (21-51); MEAN CORPUSCULAR HEMOGLOBIN 33.3 PG (27.0-31.0); MEAN CORPUSCULAR HGB CONC 34.4 g/dL (33.0-36.5); MEAN CORPUSCULAR VOLUME 96.8 FL (78-98); MEAN PLATELET VOLUME 7.6 FL (7.4-10.4); MONOCYTES # (AUTO) 0.8 X10'3 (0-0.9); MONOCYTES % (AUTO) 10.1 % (2-12); NEUTROPHILS # (AUTO) 6.5 X10'3 (1.8-7.7); NEUTROPHILS % (AUTO) 79.9 % (42-75); PLATELET COUNT 390 X10'3 (140-440); RED BLOOD COUNT 3.75 X10'6 (4.20-5.60); RED CELL DISTRIBUTION WIDTH 16.5 % (11.5-14.5); WHITE BLOOD COUNT 8.2 X10'3 (4.5-11.0)
[2024-01-18 07:56] LABS: ALANINE AMINOTRANSFERASE 21 U/L (12-78); ALBUMIN 2.8 G/DL (3.4-5.0); ALBUMIN/GLOBULIN RATIO 0.9 (1.1-1.5); ALKALINE PHOSPHATASE 26 IU/L (46-116); ANION GAP 10 (8-16); ASPARTATE AMINO TRANSFERASE 32 U/L (10-37); BILIRUBIN,TOTAL 0.6 MG/DL (0.1-1.0); BLOOD UREA NITROGEN 25 MG/DL (7-18); BUN/CREATININE RATIO 32.1 (10.0-20.0); CALCIUM 8.3 MG/DL (8.5-10.1); CHLORIDE 106 MMOL/L (99-107); CREATININE 0.78 MG/DL (0.40-0.90); GLUCOSE 120 MG/DL (70-104); POTASSIUM 3.2 MMOL/L (3.5-5.1); SODIUM 144 MMOL/L (135-145); TOTAL PROTEIN 5.8 G/DL (6.4-8.2); eCRCL 37 ML/MIN; eGFR 70 ML/MIN
[2024-01-18] MEDS ORDERED: hydrALAZINE 20mg/ml inj. IV PRN (08:25)
[2024-01-18] MEDS: potassium Cl 40MEQ/1/2NS 520ml 520 ML IV PRN (08:35)
[2024-01-18] MEDS: diphenhydrAMINE 50 mg/ml inj IV PRN (14:13)
[2024-01-18] MEDS ORDERED: ondansetron/PF 4mg/2ml inj IV PRN (17:15)
[2024-01-18] MEDS ORDERED: enalaprilat dihydrate 2.5mg/2ml vial IV PRN (17:15)
[2024-01-18] MEDS: ringers solution, lacted 1,000 ML IV SCH (17:15)
[2024-01-18] MEDS ORDERED: fentaNYL/PF 50MCG/1 ML 2ML syringe IV PRN ×2 (17:15)
[2024-01-18] MEDS ORDERED: morphine 4 MG/ML inj SYRINge IV PRN (17:15)
[2024-01-18] MEDS ORDERED: fentaNYL/PF 50MCG/1 ML 2ML syringe ONE ×2 (17:43→19:33)
[2024-01-18] MEDS ORDERED: midazolam 1 mg/ML 2ml injection ONE (17:43)
[2024-01-18] MEDS ORDERED: ondansetron/PF 4mg/2ml inj ONE (17:44)
[2024-01-18] MEDS ORDERED: propofol inj 20 ML IV ONE (17:44)
[2024-01-18] MEDS ORDERED: LIDOcaine 2% (20mg/ml) 5ml vial ONE (17:44)
[2024-01-18] MEDS ORDERED: rocuronium 10mg/ml inj IV ONE (17:44)
[2024-01-18] MEDS ORDERED: dexamethasone sod phosphate 4mg/ml inj. ONE (17:44)
[2024-01-18] MEDS ORDERED: sevoflurane 250ml liquid IH ONE (17:50)
[2024-01-18] MEDS ORDERED: hydrALAZINE 20mg/ml inj. IV ONE (19:16)
[2024-01-18] MEDS ORDERED: sugammadex 200mg/2ml injection IV ONE (19:32)
[2024-01-18] MEDS ORDERED: BUPIVAcaine 0.5% inj/PF 30 ML ONE (19:35)
[2024-01-18] MEDS ORDERED: BUPIVACAINE liposomal/PF 13.3 MG/ML vial IM ONE (19:35)
[2024-01-18] MEDS: morphine 2 MG/ML inj. syringe IV PRN (20:26)
[2024-01-18] MEDS: hydrALAZINE 20mg/ml inj. IV PRN (20:52)
[2024-01-18] MEDS: methylPREDNISolone sod succ/PF 40mg inj. IV SCH (22:12)
[2024-01-18] MEDS: clindamycin 600mg/D5W 50ml 50 ML IV SCH (22:13)
[2024-01-19] VITALS (13 sets, daily range): BP systolic 104–183; BP diastolic 49–88; PULSE 69–82; RESP 12–19; TEMP 97.5–99.9; O2SAT 91–97
[2024-01-19] MEDS: hydrALAZINE 20mg/ml inj. IV PRN (01:02)
[2024-01-19 06:25] LABS: EOSINOPHILS % (AUTO) 0 % (0-6); LYMPHOCYTES # (AUTO) 0.3 X10'3 (1.1-4.8); MEAN CORPUSCULAR VOLUME 96.9 FL (78-98); WHITE BLOOD COUNT 5.9 X10'3 (4.5-11.0)
[2024-01-19 06:27] LABS: BASOPHILS % (AUTO) 0.1 % (0-1); HEMATOCRIT 33.6 % (35.0-45.0); HEMOGLOBIN 11.5 g/dl (12.0-16.0); LYMPHOCYTES % (AUTO) 5.3 % (21-51); MEAN CORPUSCULAR HEMOGLOBIN 33.2 PG (27.0-31.0); MEAN CORPUSCULAR HGB CONC 34.3 g/dL (33.0-36.5); MEAN PLATELET VOLUME 7.6 FL (7.4-10.4); MONOCYTES # (AUTO) 0.2 X10'3 (0-0.9); MONOCYTES % (AUTO) 4.1 % (2-12); NEUTROPHILS # (AUTO) 5.4 X10'3 (1.8-7.7); NEUTROPHILS % (AUTO) 90.5 % (42-75); PLATELET COUNT 377 X10'3 (140-440); RED BLOOD COUNT 3.47 X10'6 (4.20-5.60); RED CELL DISTRIBUTION WIDTH 16.6 % (11.5-14.5)
[2024-01-19 06:39] LABS: ALANINE AMINOTRANSFERASE 28 U/L (12-78); ALBUMIN 2.4 G/DL (3.4-5.0); ALBUMIN/GLOBULIN RATIO 0.8 (1.1-1.5); ALKALINE PHOSPHATASE 32 IU/L (46-116); ANION GAP 4 (8-16); ASPARTATE AMINO TRANSFERASE 29 U/L (10-37); BILIRUBIN,TOTAL 0.7 MG/DL (0.1-1.0); BLOOD UREA NITROGEN 21 MG/DL (7-18); BUN/CREATININE RATIO 27.6 (10.0-20.0); CALCIUM 7.9 MG/DL (8.5-10.1); CHLORIDE 103 MMOL/L (99-107); CREATININE 0.76 MG/DL (0.40-0.90); GLUCOSE 118 MG/DL (70-104); POTASSIUM 3.3 MMOL/L (3.5-5.1); SODIUM 139 MMOL/L (135-145); TOTAL CARBON DIOXIDE 32.1 MMOL/L (24-32); TOTAL PROTEIN 5.3 G/DL (6.4-8.2); eCRCL 37 ML/MIN; eGFR 72 ML/MIN
[2024-01-19] MEDS: potassium Cl 40MEQ/1/2NS 520ml 520 ML IV ONE (06:50)
[2024-01-19] MEDS: carvedilol 6.25mg tablet PO SCH (08:00)
[2024-01-19] MEDS: methylPREDNISolone sod succ/PF 40mg inj. IV SCH (12:05)
[2024-01-19] MEDS: isosorbide mononitrate 30mg tab.SR.24H PO SCH (12:58)
[2024-01-19] MEDS: divalproex sodium 500mg tablet.DR PO SCH (12:59)
[2024-01-19] MEDS ORDERED: sodium phosphate inj. 30 MMOL in dextrose 5%-water 250 ML IV PRN (15:35)
[2024-01-19] MEDS ORDERED: Dextrose 10%-water IV solution 1,000 ML IV PRN (15:35)
[2024-01-19] MEDS ORDERED: potassium Cl 20 mEq SR tablet PO PRN ×2 (15:35)
[2024-01-19] MEDS ORDERED: potassium Cl 40MEQ/1/2NS 520ml 520 ML IV PRN (15:35)
[2024-01-19] MEDS ORDERED: sodium phosphate inj. 15 MMOL in dextrose 5%-water 250 ML IV PRN (15:35)
[2024-01-19] MEDS ORDERED: magnesium Cl slow-release 64mg tablet PO PRN (15:35)
[2024-01-19] MEDS ORDERED: magnesium 2GM in 50ml NS 50 ML IV PRN (15:35)
[2024-01-19] MEDS ORDERED: Neutra Phos packet PO PRN (15:35)
[2024-01-19] MEDS: ZINC/COPPER/MANGANESE/SELENIUM 1 ML, chromic chloride inj. 10 MCG in AA 5%/CALCIUM/LYTE... IV SCH (17:09)
[2024-01-19] MEDS: fat emulsion 20% inj. 100 ML IV SCH (17:11)
[2024-01-19] MEDS: MVI, adult No.4 with vit. K 10 ML in dextrose 5% water 500ml 500 ML IV SCH (17:12)
[2024-01-19 19:05] LABS: ALANINE AMINOTRANSFERASE 30 U/L (12-78); ALBUMIN 2.4 G/DL (3.4-5.0); ALBUMIN/GLOBULIN RATIO 0.8 (1.1-1.5); ALKALINE PHOSPHATASE 32 IU/L (46-116); ANION GAP 9 (8-16); ASPARTATE AMINO TRANSFERASE 34 U/L (10-37); BILIRUBIN,TOTAL 0.6 MG/DL (0.1-1.0); BLOOD UREA NITROGEN 26 MG/DL (7-18); BUN/CREATININE RATIO 32.5 (10.0-20.0); CALCIUM 8.2 MG/DL (8.5-10.1); CHLORIDE 102 MMOL/L (99-107); GLUCOSE 114 MG/DL (70-104); MAGNESIUM 1.6 MG/DL (1.5-2.4); PHOSPHORUS 2.8 MG/DL (2.3-4.5); POTASSIUM 4.3 MMOL/L (3.5-5.1); PREALBUMIN 14.7 MG/DL (19-36); SODIUM 138 MMOL/L (135-145); TOTAL CARBON DIOXIDE 27.3 MMOL/L (24-32); TOTAL PROTEIN 5.3 G/DL (6.4-8.2); TRIGLYCERIDES 57 MG/DL (20-135); eCRCL 36 ML/MIN; eGFR 68 ML/MIN
[2024-01-19] MEDS: K and/or MAG REPLACEMENT MC SCH (20:00)
[2024-01-20 02:00] VITALS: BP 142/61; PULSE 76; RESP 18; TEMP 98.7; O2SAT 92
[2024-01-20 06:46] LABS: BASOPHILS % (AUTO) 0.2 % (0-1); EOSINOPHILS % (AUTO) 0.1 % (0-6); HEMATOCRIT 26.1 % (35.0-45.0); HEMOGLOBIN 9.3 g/dl (12.0-16.0); LYMPHOCYTES # (AUTO) 0.8 X10'3 (1.1-4.8); LYMPHOCYTES % (AUTO) 12.8 % (21-51); MEAN CORPUSCULAR HEMOGLOBIN 34.5 PG (27.0-31.0); MEAN CORPUSCULAR HGB CONC 35.5 g/dL (33.0-36.5); MEAN CORPUSCULAR VOLUME 97.2 FL (78-98); MONOCYTES # (AUTO) 0.6 X10'3 (0-0.9); MONOCYTES % (AUTO) 9.5 % (2-12); NEUTROPHILS % (AUTO) 77.4 % (42-75); PLATELET COUNT 347 X10'3 (140-440); RED BLOOD COUNT 2.68 X10'6 (4.20-5.60); RED CELL DISTRIBUTION WIDTH 16.6 % (11.5-14.5); WHITE BLOOD COUNT 6.5 X10'3 (4.5-11.0)
[2024-01-20 07:43] LABS: ALANINE AMINOTRANSFERASE 31 U/L (12-78); ALBUMIN/GLOBULIN RATIO 0.8 (1.1-1.5); ALKALINE PHOSPHATASE 27 IU/L (46-116); ANION GAP 2 (8-16); ASPARTATE AMINO TRANSFERASE 29 U/L (10-37); BILIRUBIN,TOTAL 0.4 MG/DL (0.1-1.0); BLOOD UREA NITROGEN 28 MG/DL (7-18); BUN/CREATININE RATIO 36.8 (10.0-20.0); CALCIUM 7.5 MG/DL (8.5-10.1); CHLORIDE 103 MMOL/L (99-107); CREATININE 0.76 MG/DL (0.40-0.90); GLUCOSE 157 MG/DL (70-104); MAGNESIUM 1.7 MG/DL (1.5-2.4); POTASSIUM 3.5 MMOL/L (3.5-5.1); SODIUM 138 MMOL/L (135-145); TOTAL CARBON DIOXIDE 32.8 MMOL/L (24-32); TOTAL PROTEIN 4.4 G/DL (6.4-8.2); eCRCL 37 ML/MIN; eGFR 72 ML/MIN
[2024-01-20 08:49] VITALS: RESP 22; O2SAT 95
[2024-01-20] MEDS ORDERED: Dextrose 10%-water IV solution 1,000 ML IV PRN (13:09)
[2024-01-20 18:48] LABS: UREA NITROGEN 24HR,URINE 13.1 GM/24HR (7-20)
[2024-01-20 20:00] VITALS: RESP 14; O2SAT 95
[2024-01-20 20:30] VITALS: BP 168/78; PULSE 78
[2024-01-20] MEDS: ringers solution, lacted 1,000 ML IV SCH (22:19)
[2024-01-21] VITALS (8 sets, daily range): BP systolic 114–161; BP diastolic 67–87; PULSE 74–130; RESP 15–22; TEMP 97–98.6; O2SAT 95–98
[2024-01-21 07:31] LABS: MAGNESIUM 1.4 MG/DL (1.5-2.4); PHOSPHORUS 2.5 MG/DL (2.3-4.5); PREALBUMIN 18.7 MG/DL (19-36)
[2024-01-21] MEDS: methylPREDNISolone sod succ/PF 40mg inj. IV SCH (09:36)
[2024-01-21 10:32] LABS: BASOPHILS % (AUTO) 0 % (0-1); EOSINOPHILS # (AUTO) 0.3 X10'3 (0-0.9); EOSINOPHILS % (AUTO) 3.3 % (0-6); HEMATOCRIT 32.1 % (35.0-45.0); HEMOGLOBIN 10.8 g/dl (12.0-16.0); LYMPHOCYTES % (AUTO) 13.7 % (21-51); MEAN CORPUSCULAR HEMOGLOBIN 32.7 PG (27.0-31.0); MEAN CORPUSCULAR HGB CONC 33.7 g/dL (33.0-36.5); MEAN CORPUSCULAR VOLUME 96.9 FL (78-98); MEAN PLATELET VOLUME 7.6 FL (7.4-10.4); MONOCYTES % (AUTO) 13.6 % (2-12); NEUTROPHILS # (AUTO) 5.3 X10'3 (1.8-7.7); NEUTROPHILS % (AUTO) 69.4 % (42-75); PLATELET COUNT 365 X10'3 (140-440); RED BLOOD COUNT 3.32 X10'6 (4.20-5.60); RED CELL DISTRIBUTION WIDTH 17.2 % (11.5-14.5); WHITE BLOOD COUNT 7.7 X10'3 (4.5-11.0)
[2024-01-21 10:35] LABS: ALANINE AMINOTRANSFERASE 29 U/L (12-78); ALBUMIN 1.9 G/DL (3.4-5.0); ALBUMIN/GLOBULIN RATIO 0.7 (1.1-1.5); ALKALINE PHOSPHATASE 20 IU/L (46-116); ANION GAP 4 (8-16); ASPARTATE AMINO TRANSFERASE 21 U/L (10-37); BILIRUBIN,TOTAL 0.3 MG/DL (0.1-1.0); BLOOD UREA NITROGEN 23 MG/DL (7-18); BUN/CREATININE RATIO 39.7 (10.0-20.0); CHLORIDE 104 MMOL/L (99-107); CREATININE 0.58 MG/DL (0.40-0.90); GLUCOSE 117 MG/DL (70-104); POTASSIUM 3.2 MMOL/L (3.5-5.1); SODIUM 141 MMOL/L (135-145); TOTAL CARBON DIOXIDE 32.9 MMOL/L (24-32); TOTAL PROTEIN 4.6 G/DL (6.4-8.2); eCRCL 49 ML/MIN; eGFR > 90 ML/MIN
[2024-01-21 13:25] LABS: PRO BRAIN NATRIURETIC PEPTIDE 2586 PG/ML (0-450)
[2024-01-21] MEDS: magnesium 4gm in 100ml NS 100 ML IV PRN (14:57)
[2024-01-21] MEDS: morphine 2 MG/ML inj. syringe IV PRN (14:58)
[2024-01-21] MEDS: potassium Cl 40MEQ/1/2NS 520ml 520 ML IV PRN (16:20)
[2024-01-22] VITALS (7 sets, daily range): BP systolic 108–139; BP diastolic 66–80; PULSE 81–113; RESP 16–22; TEMP 97–98.3; O2SAT 94–98
[2024-01-22 05:37] LABS: ALANINE AMINOTRANSFERASE 22 U/L (12-78); ALBUMIN 1.9 G/DL (3.4-5.0); ALBUMIN/GLOBULIN RATIO 0.7 (1.1-1.5); ALKALINE PHOSPHATASE 24 IU/L (46-116); ANION GAP 5 (8-16); ASPARTATE AMINO TRANSFERASE 19 U/L (10-37); BILIRUBIN,TOTAL 0.3 MG/DL (0.1-1.0); BLOOD UREA NITROGEN 23 MG/DL (7-18); BUN/CREATININE RATIO 39.7 (10.0-20.0); CALCIUM 7.7 MG/DL (8.5-10.1); CHLORIDE 104 MMOL/L (99-107); CREATININE 0.58 MG/DL (0.40-0.90); GLUCOSE 119 MG/DL (70-104); MAGNESIUM 2.3 MG/DL (1.5-2.4); PHOSPHORUS 2.7 MG/DL (2.3-4.5); POTASSIUM 3.5 MMOL/L (3.5-5.1); SODIUM 139 MMOL/L (135-145); TOTAL CARBON DIOXIDE 30.2 MMOL/L (24-32); TOTAL PROTEIN 4.5 G/DL (6.4-8.2); eCRCL 49 ML/MIN; eGFR > 90 ML/MIN
[2024-01-22] MEDS: morphine 2 MG/ML inj. syringe IV PRN (05:53)
[2024-01-22 10:06] LABS: BASOPHILS % (AUTO) 0.3 % (0-1); EOSINOPHILS # (AUTO) 0.3 X10'3 (0-0.9); EOSINOPHILS % (AUTO) 4.1 % (0-6); HEMATOCRIT 32.2 % (35.0-45.0); LYMPHOCYTES # (AUTO) 1.4 X10'3 (1.1-4.8); LYMPHOCYTES % (AUTO) 16.5 % (21-51); MEAN CORPUSCULAR HEMOGLOBIN 32.9 PG (27.0-31.0); MEAN CORPUSCULAR VOLUME 96.8 FL (78-98); MEAN PLATELET VOLUME 7.7 FL (7.4-10.4); MONOCYTES # (AUTO) 1.1 X10'3 (0-0.9); MONOCYTES % (AUTO) 12.9 % (2-12); NEUTROPHILS # (AUTO) 5.6 X10'3 (1.8-7.7); NEUTROPHILS % (AUTO) 66.2 % (42-75); PLATELET COUNT 323 X10'3 (140-440); RED BLOOD COUNT 3.33 X10'6 (4.20-5.60); RED CELL DISTRIBUTION WIDTH 16.8 % (11.5-14.5); WHITE BLOOD COUNT 8.4 X10'3 (4.5-11.0)
[2024-01-22 10:20] LABS: ALANINE AMINOTRANSFERASE 22 U/L (12-78); ALBUMIN 1.8 G/DL (3.4-5.0); ALBUMIN/GLOBULIN RATIO 0.7 (1.1-1.5); ALKALINE PHOSPHATASE 23 IU/L (46-116); ANION GAP 5 (8-16); ASPARTATE AMINO TRANSFERASE 17 U/L (10-37); BILIRUBIN,TOTAL 0.3 MG/DL (0.1-1.0); BLOOD UREA NITROGEN 24 MG/DL (7-18); BUN/CREATININE RATIO 47.1 (10.0-20.0); CALCIUM 7.6 MG/DL (8.5-10.1); CHLORIDE 104 MMOL/L (99-107); CREATININE 0.51 MG/DL (0.40-0.90); GLUCOSE 159 MG/DL (70-104); POTASSIUM 3.4 MMOL/L (3.5-5.1); SODIUM 139 MMOL/L (135-145); TOTAL CARBON DIOXIDE 30.2 MMOL/L (24-32); TOTAL PROTEIN 4.5 G/DL (6.4-8.2); eCRCL 56 ML/MIN; eGFR > 90 ML/MIN
[2024-01-22] MEDS ORDERED: hydrALAZINE 20mg/ml inj. IV PRN (18:10)
[2024-01-22] MEDS: magnesium hydroxide 30ml (MOM) UD suspension PO SCH (20:11)
[2024-01-22] MEDS: enoxaparin 40mg/0.4ml syringe SUBCUT SCH (20:17)
[2024-01-23] VITALS (7 sets, daily range): BP systolic 104–136; BP diastolic 56–76; PULSE 61–102; RESP 14–24; TEMP 97.7–98.1; O2SAT 90–98
[2024-01-23 06:42] LABS: MAGNESIUM 1.7 MG/DL (1.5-2.4); PHOSPHORUS 3.6 MG/DL (2.3-4.5)
[2024-01-23 11:22] LABS: BASOPHILS # (AUTO) 0.1 X10'3 (0-0.2); BASOPHILS % (AUTO) 0.6 % (0-1); EOSINOPHILS # (AUTO) 0.4 X10'3 (0-0.9); HEMATOCRIT 30.9 % (35.0-45.0); HEMOGLOBIN 10.8 g/dl (12.0-16.0); LYMPHOCYTES # (AUTO) 0.9 X10'3 (1.1-4.8); LYMPHOCYTES % (AUTO) 10.3 % (21-51); MEAN CORPUSCULAR HEMOGLOBIN 33.5 PG (27.0-31.0); MEAN CORPUSCULAR VOLUME 95.8 FL (78-98); MONOCYTES % (AUTO) 11.8 % (2-12); NEUTROPHILS # (AUTO) 6.5 X10'3 (1.8-7.7); NEUTROPHILS % (AUTO) 73.3 % (42-75); PLATELET COUNT 280 X10'3 (140-440); RED BLOOD COUNT 3.22 X10'6 (4.20-5.60); RED CELL DISTRIBUTION WIDTH 17.1 % (11.5-14.5); WHITE BLOOD COUNT 8.9 X10'3 (4.5-11.0)
[2024-01-23 11:35] LABS: ALANINE AMINOTRANSFERASE 11 U/L (12-78); ALBUMIN 1.7 G/DL (3.4-5.0); ALBUMIN/GLOBULIN RATIO 0.6 (1.1-1.5); ANION GAP 2 (8-16); ASPARTATE AMINO TRANSFERASE 17 U/L (10-37); BILIRUBIN,TOTAL 0.3 MG/DL (0.1-1.0); BLOOD UREA NITROGEN 27 MG/DL (7-18); BUN/CREATININE RATIO 38.6 (10.0-20.0); CHLORIDE 100 MMOL/L (99-107); GLUCOSE 128 MG/DL (70-104); POTASSIUM 3.3 MMOL/L (3.5-5.1); SODIUM 135 MMOL/L (135-145); TOTAL CARBON DIOXIDE 33.4 MMOL/L (24-32); TOTAL PROTEIN 4.6 G/DL (6.4-8.2); eCRCL 41 ML/MIN; eGFR 79 ML/MIN
[2024-01-23 11:36] LABS: ALKALINE PHOSPHATASE 28 IU/L (46-116)
[2024-01-23] MEDS ORDERED: magnesium 2GM in 50ml NS 50 ML IV PRN (11:50)
[2024-01-23] MEDS ORDERED: magnesium 4gm in 100ml NS 100 ML IV PRN (11:50)
[2024-01-23] MEDS ORDERED: magnesium Cl slow-release 64mg tablet PO PRN (11:50)
[2024-01-23] MEDS ORDERED: potassium Cl 20 mEq SR tablet PO PRN ×2 (11:50)
[2024-01-23] MEDS: furosemide 20 MG/2 ML vial IV ONE (13:16)
[2024-01-23] MEDS: potassium Cl 40MEQ/1/2NS 520ml 520 ML IV PRN (14:05)
[2024-01-23] MEDS: mag hydrox/Alum hydrox/simeth 30ml oral suspension PO PRN (15:29)
[2024-01-23] MEDS: morphine 2 MG/ML inj. syringe IV PRN ×2 (18:28→22:54)
[2024-01-23] MEDS: K and/or MAG REPLACEMENT MC SCH (19:55)
[2024-01-24] VITALS (7 sets, daily range): BP systolic 111–160; BP diastolic 65–84; PULSE 80–95; RESP 14–18; TEMP 97.6–98.2; O2SAT 90–99
[2024-01-24 05:51] LABS: PHOSPHORUS 3.8 MG/DL (2.3-4.5)
[2024-01-24 08:59] LABS: ANION GAP 6 (8-16); BLOOD UREA NITROGEN 31 MG/DL (7-18); BUN/CREATININE RATIO 46.3 (10.0-20.0); CHLORIDE 98 MMOL/L (99-107); CREATININE 0.67 MG/DL (0.40-0.90); GLUCOSE 145 MG/DL (70-104); SODIUM 133 MMOL/L (135-145); TOTAL CARBON DIOXIDE 29.5 MMOL/L (24-32)
[2024-01-24 09:00] LABS: ALANINE AMINOTRANSFERASE 17 U/L (12-78); ALBUMIN 1.9 G/DL (3.4-5.0); ALBUMIN/GLOBULIN RATIO 0.6 (1.1-1.5); ALKALINE PHOSPHATASE 37 IU/L (46-116); ASPARTATE AMINO TRANSFERASE 34 U/L (10-37); BILIRUBIN,TOTAL 0.3 MG/DL (0.1-1.0); CALCIUM 8.3 MG/DL (8.5-10.1); eCRCL 42 ML/MIN; eGFR 83 ML/MIN
[2024-01-24 09:01] LABS: POTASSIUM 4.5 MMOL/L (3.5-5.1)
[2024-01-24 09:11] LABS: BASOPHILS % (AUTO) 0.3 % (0-1); EOSINOPHILS # (AUTO) 0.1 X10'3 (0-0.9); EOSINOPHILS % (AUTO) 0.9 % (0-6); HEMATOCRIT 30.4 % (35.0-45.0); HEMOGLOBIN 10.5 g/dl (12.0-16.0); LYMPHOCYTES % (AUTO) 10.4 % (21-51); MEAN CORPUSCULAR HEMOGLOBIN 33.2 PG (27.0-31.0); MEAN CORPUSCULAR HGB CONC 34.4 g/dL (33.0-36.5); MEAN CORPUSCULAR VOLUME 96.5 FL (78-98); MEAN PLATELET VOLUME 8.4 FL (7.4-10.4); MONOCYTES # (AUTO) 1.1 X10'3 (0-0.9); MONOCYTES % (AUTO) 11.2 % (2-12); NEUTROPHILS # (AUTO) 7.7 X10'3 (1.8-7.7); NEUTROPHILS % (AUTO) 77.2 % (42-75); PLATELET COUNT 299 X10'3 (140-440); RED BLOOD COUNT 3.15 X10'6 (4.20-5.60); RED CELL DISTRIBUTION WIDTH 16.7 % (11.5-14.5)
[2024-01-24] MEDS: morphine 2 MG/ML inj. syringe IV PRN ×2 (11:55→20:02)
[2024-01-24] MEDS: ondansetron/PF 4mg/2ml inj IV PRN (12:01)
[2024-01-25] VITALS (8 sets, daily range): BP systolic 108–139; BP diastolic 62–86; PULSE 77–94; RESP 13–21; TEMP 97.3–98.5; O2SAT 94–95
[2024-01-25 09:55] LABS: BASOPHILS % (AUTO) 0.4 % (0-1); EOSINOPHILS # (AUTO) 0.2 X10'3 (0-0.9); EOSINOPHILS % (AUTO) 2.6 % (0-6); HEMATOCRIT 27.4 % (35.0-45.0); HEMOGLOBIN 9.4 g/dl (12.0-16.0); LYMPHOCYTES # (AUTO) 0.9 X10'3 (1.1-4.8); MEAN CORPUSCULAR HEMOGLOBIN 33.3 PG (27.0-31.0); MEAN CORPUSCULAR HGB CONC 34.3 g/dL (33.0-36.5); MEAN PLATELET VOLUME 8.6 FL (7.4-10.4); MONOCYTES # (AUTO) 0.9 X10'3 (0-0.9); MONOCYTES % (AUTO) 10.5 % (2-12); NEUTROPHILS # (AUTO) 6.7 X10'3 (1.8-7.7); NEUTROPHILS % (AUTO) 76.5 % (42-75); PLATELET COUNT 291 X10'3 (140-440); RED BLOOD COUNT 2.82 X10'6 (4.20-5.60); RED CELL DISTRIBUTION WIDTH 17.6 % (11.5-14.5); WHITE BLOOD COUNT 8.8 X10'3 (4.5-11.0)
[2024-01-25 10:10] LABS: ALANINE AMINOTRANSFERASE 18 U/L (12-78); ALBUMIN 1.7 G/DL (3.4-5.0); ALBUMIN/GLOBULIN RATIO 0.6 (1.1-1.5); ALKALINE PHOSPHATASE 29 IU/L (46-116); ANION GAP 3 (8-16); ASPARTATE AMINO TRANSFERASE 18 U/L (10-37); BILIRUBIN,TOTAL 0.2 MG/DL (0.1-1.0); BLOOD UREA NITROGEN 28 MG/DL (7-18); BUN/CREATININE RATIO 43.8 (10.0-20.0); CHLORIDE 97 MMOL/L (99-107); CREATININE 0.64 MG/DL (0.40-0.90); GLUCOSE 127 MG/DL (70-104); MAGNESIUM 2.1 MG/DL (1.5-2.4); PHOSPHORUS 3.5 MG/DL (2.3-4.5); POTASSIUM 4.2 MMOL/L (3.5-5.1); SODIUM 134 MMOL/L (135-145); TOTAL PROTEIN 4.5 G/DL (6.4-8.2); TRIGLYCERIDES 68 MG/DL (20-135); eCRCL 44 ML/MIN; eGFR 88 ML/MIN
[2024-01-25] MEDS ORDERED: metoclopramide 5 mg/ml inj IV PRN (10:25)
[2024-01-25] MEDS: HYDROcodone/acetaminophen 5mg/325mg tablet PO PRN (11:26)
[2024-01-26 02:00] VITALS: BP 114/58; PULSE 78; RESP 20; TEMP 96.7; O2SAT 95
[2024-01-26] MEDS: magnesium hydroxide 30ml (MOM) UD suspension PO SCH (07:23)
[2024-01-26 07:30] VITALS: BP 125/63; PULSE 70; RESP 15; TEMP 97.4; O2SAT 96
[2024-01-26 08:00] VITALS: RESP 15; O2SAT 96
[2024-01-26] MEDS ORDERED: oxyCODONE/APAP 5-325mg tablet PO PRN (10:35)
[2024-01-26 10:58] LABS: BASOPHILS % (AUTO) 0.6 % (0-1); EOSINOPHILS # (AUTO) 0.2 X10'3 (0-0.9); EOSINOPHILS % (AUTO) 2.2 % (0-6); HEMATOCRIT 25.5 % (35.0-45.0); HEMOGLOBIN 8.8 g/dl (12.0-16.0); LYMPHOCYTES # (AUTO) 0.7 X10'3 (1.1-4.8); LYMPHOCYTES % (AUTO) 9.3 % (21-51); MEAN CORPUSCULAR HEMOGLOBIN 33.2 PG (27.0-31.0); MEAN CORPUSCULAR HGB CONC 34.4 g/dL (33.0-36.5); MEAN CORPUSCULAR VOLUME 96.5 FL (78-98); MEAN PLATELET VOLUME 8.9 FL (7.4-10.4); MONOCYTES # (AUTO) 0.6 X10'3 (0-0.9); MONOCYTES % (AUTO) 8.6 % (2-12); NEUTROPHILS # (AUTO) 5.9 X10'3 (1.8-7.7); NEUTROPHILS % (AUTO) 79.3 % (42-75); PLATELET COUNT 299 X10'3 (140-440); RED BLOOD COUNT 2.65 X10'6 (4.20-5.60); WHITE BLOOD COUNT 7.4 X10'3 (4.5-11.0)
[2024-01-26 11:17] LABS: ALANINE AMINOTRANSFERASE 21 U/L (12-78); ALBUMIN 1.7 G/DL (3.4-5.0); ALBUMIN/GLOBULIN RATIO 0.6 (1.1-1.5); ALKALINE PHOSPHATASE 31 IU/L (46-116); ANION GAP -1 (8-16); ASPARTATE AMINO TRANSFERASE 20 U/L (10-37); BILIRUBIN,TOTAL 0.2 MG/DL (0.1-1.0); BLOOD UREA NITROGEN 27 MG/DL (7-18); BUN/CREATININE RATIO 42.2 (10.0-20.0); CHLORIDE 100 MMOL/L (99-107); CREATININE 0.64 MG/DL (0.40-0.90); GLUCOSE 138 MG/DL (70-104); SODIUM 134 MMOL/L (135-145); TOTAL CARBON DIOXIDE 34.8 MMOL/L (24-32); TOTAL PROTEIN 4.5 G/DL (6.4-8.2); eCRCL 44 ML/MIN; eGFR 88 ML/MIN
[2024-01-26 11:54] VITALS: BP 141/69; PULSE 72; RESP 15; TEMP 97.1; O2SAT 97
[2024-01-26] MEDS: oxyCODONE/APAP 10/325mg tablet PO PRN (12:18)
[2024-01-26 13:18] VITALS: RESP 18
== END 2024-01-26 14:57 | DRG 329 ==
LOC: ER 19:10 → ED HOLD 23:39 → PCU 3S 01-16 02:35
PROVIDERS: ADMIT Internal Medicine Critical Care Medicine; ATTEND Family Medicine
PROC: B4201ZZ Computerized Tomography (CT Scan) of Abdominal Aorta using Low Osmolar Contrast (ICD-10-PCS; 2024-01-15)
PROC: B4241ZZ Computerized Tomography (CT Scan) of Superior Mesenteric Artery using Low Osmolar Contrast (ICD-10-PCS; 2024-01-15)
PROC: B4281ZZ Computerized Tomography (CT Scan) of Bilateral Renal Arteries using Low Osmolar Contrast (ICD-10-PCS; 2024-01-15)
PROC: B42C1ZZ Computerized Tomography (CT Scan) of Pelvic Arteries using Low Osmolar Contrast (ICD-10-PCS; 2024-01-15)
PROC: B4211ZZ Computerized Tomography (CT Scan) of Celiac Artery using Low Osmolar Contrast (ICD-10-PCS; 2024-01-15)
PROC: 0DN80ZZ Release Small Intestine, Open Approach (ICD-10-PCS; 2024-01-17)
PROC: 3E0T3BZ Introduction of Anesthetic Agent into Peripheral Nerves and Plexi, Percutaneous Approach (ICD-10-PCS; 2024-01-18)
PROC: 02HV33Z Insertion of Infusion Device into Superior Vena Cava, Percutaneous Approach (ICD-10-PCS; 2024-01-18)
PROC: B548ZZA Ultrasonography of Superior Vena Cava, Guidance (ICD-10-PCS; 2024-01-18)
PROC: 0DB80ZZ Excision of Small Intestine, Open Approach (ICD-10-PCS; principal; 2024-01-18 17:50)
PROC: 0D9670Z Drainage of Stomach with Drainage Device, Via Natural or Artificial Opening (ICD-10-PCS; 2024-01-19)
DX: K56.50 Intestinal adhesions [bands], unspecified as to partial versus complete obstruction (principal); K55.019 Acute (reversible) ischemia of small intestine, extent unspecified; N17.9 Acute kidney failure, unspecified; I48.20 Chronic atrial fibrillation, unspecified; I25.10 Atherosclerotic heart disease of native coronary artery without angina pectoris; I11.0 Hypertensive heart disease with heart failure; I50.9 Heart failure, unspecified; E78.00 Pure hypercholesterolemia, unspecified; K21.9 Gastro-esophageal reflux disease without esophagitis; Z66 Do not resuscitate; G43.909 Migraine, unspecified, not intractable, without status migrainosus; I16.0 Hypertensive urgency; T36.4X5A Adverse effect of tetracyclines, initial encounter; J45.909 Unspecified asthma, uncomplicated; N73.6 Female pelvic peritoneal adhesions (postinfective); K56.7 Ileus, unspecified; Z88.1 Allergy status to other antibiotic agents; Z88.0 Allergy status to penicillin; Z88.2 Allergy status to sulfonamides; Z88.8 Allergy status to other drugs, medicaments and biological substances; Z79.01 Long term (current) use of anticoagulants; Z79.899 Other long term (current) drug therapy; Z86.73 Personal history of transient ischemic attack (TIA), and cerebral infarction without residual deficits; Z90.49 Acquired absence of other specified parts of digestive tract; Z90.710 Acquired absence of both cervix and uterus; Z98.1 Arthrodesis status; Y92.89 Other specified places as the place of occurrence of the external cause
CPT/HCPCS: 36415; 71045; 74018; 74174; 74176; 76700; 80053; 81001; 81025; 82150; 82948; 83605; 83690; 83735; 83880; 84100; 84134; 84145; 84443; 84478; 84484; 84560; 85025; 85651; 87040; 87070; 87081; 88307; 93005; 96365; 96375; 97110; 97161; 97530; 99285; A4615; A4618; A5200; A6253; A6258; A6407; A6449; A7000; C1758; C9113; C9290; G0378; J0131; J0360; J1100; J1170; J1200; J1650; J1940; J2250; J2270; J2405; J2704; J2710; J2920; J3010; J3475; J3480; J3490; J7030; J7040; J7060; J7120; P9045; Q9963; Q9967; S0020

== ENCOUNTER 2024-03-21 12:40 | Outpatient (CLI) | payer MEDICARE ==
[2024-03-21 13:31] LABS: BASOPHILS % (AUTO) 0.9 % (0-1); EOSINOPHILS % (AUTO) 0.6 % (0-6); LYMPHOCYTES # (AUTO) 1.8 X10'3 (1.1-4.8); LYMPHOCYTES % (AUTO) 37.8 % (21-51); MEAN CORPUSCULAR HEMOGLOBIN 34.5 PG (27.0-31.0); MEAN CORPUSCULAR HGB CONC 33.4 g/dL (33.0-36.5); MEAN CORPUSCULAR VOLUME 103.2 FL (78-98); MEAN PLATELET VOLUME 8.1 FL (7.4-10.4); MONOCYTES # (AUTO) 0.5 X10'3 (0-0.9); MONOCYTES % (AUTO) 10.6 % (2-12); NEUTROPHILS # (AUTO) 2.3 X10'3 (1.8-7.7); NEUTROPHILS % (AUTO) 50.1 % (42-75); PLATELET COUNT 380 X10'3 (140-440); RED BLOOD COUNT 3.19 X10'6 (4.20-5.60); RED CELL DISTRIBUTION WIDTH 20.8 % (11.5-14.5); WHITE BLOOD COUNT 4.7 X10'3 (4.5-11.0)
[2024-03-21 13:43] LABS: ALANINE AMINOTRANSFERASE < 6 U/L (12-78); ALBUMIN/GLOBULIN RATIO 0.9 (1.1-1.5); ALKALINE PHOSPHATASE 56 IU/L (46-116); ANION GAP 7 (8-16); ASPARTATE AMINO TRANSFERASE 18 U/L (10-37); BILIRUBIN,TOTAL 0.5 MG/DL (0.1-1.0); BLOOD UREA NITROGEN 20 MG/DL (7-18); BUN/CREATININE RATIO 28.2 (10.0-20.0); CALCIUM 9.6 MG/DL (8.5-10.1); CHLORIDE 97 MMOL/L (99-107); CREATININE 0.71 MG/DL (0.40-0.90); GLUCOSE 132 MG/DL (70-104); SODIUM 132 MMOL/L (135-145); TOTAL CARBON DIOXIDE 28.2 MMOL/L (24-32); TOTAL PROTEIN 6.5 G/DL (6.4-8.2); eGFR 78 ML/MIN
[2024-03-21 13:59] LABS: ANISOCYTOSIS 3+; LARGE PLATELETS FEW; PLATELET ESTIMATE NORMAL
[2024-03-21 14:00] LABS: ACANTHOCYTES FEW; ELLIPTOCYTES FEW
== END 2024-03-21 23:59 | disposition home or self-care (01) ==
LOC: RAD 12:40
PROVIDERS: ATTEND Surgery
DX: R11.0 Nausea (principal); R10.30 Lower abdominal pain, unspecified; R11.10 Vomiting, unspecified
CPT/HCPCS: 80053; 85008; 85025

== ENCOUNTER 2024-03-24 11:10 | Outpatient (CLI) | payer MEDICARE ==
[2024-03-24] MEDS ORDERED: iohexol 300mg/ml 100ml inj. ONE (11:20)
== END 2024-03-24 23:59 | disposition home or self-care (01) ==
LOC: RAD 11:10
PROVIDERS: ATTEND Surgery
DX: N28.1 Cyst of kidney, acquired (principal); R11.0 Nausea; R10.30 Lower abdominal pain, unspecified; R11.10 Vomiting, unspecified; K76.89 Other specified diseases of liver; K82.8 Other specified diseases of gallbladder; N13.30 Unspecified hydronephrosis; R18.8 Other ascites; K57.30 Diverticulosis of large intestine without perforation or abscess without bleeding; I70.0 Atherosclerosis of aorta; K42.9 Umbilical hernia without obstruction or gangrene; Z96.643 Presence of artificial hip joint, bilateral
CPT/HCPCS: 74177; J3490; Q9967

== ENCOUNTER 2025-04-10 14:55 | Emergency (ER) | payer MEDICARE ==
[~2025-04-10] VITALS: Ht 152.4 cm; Wt 56.8 kg
[~2025-04-10 14:55] MED LIST changes: -LEVO-43 PO; +LEVO-81 PO; -ROSU20TA73 PO; +ROSU20TA98 PO
--- NOTE | 2025-04-10 15:41 | Physician Documentation ---
History of Present Illness ~ Chief Complaint: Chest Pain Stated Complaint: CP Primary Medical Doctor: SHORT Medication Reconciliation Allergies: Coded Allergies: doxycycline (Verified Allergy, Mild, urticaria, 04/10/25) Penicillins (Verified Allergy, Unknown, rash, 04/10/25) Sulfa (Sulfonamide Antibiotics) (Verified Allergy, Unknown, rash, 04/10/25) amoxicillin (Verified Allergy, Unknown, rash, 04/10/25) cephalexin (Verified Allergy, Unknown, rash, 04/10/25) ciprofloxacin (Verified Allergy, Unknown, rash, 04/10/25) nitrofurantoin (Unverified Adverse Reaction, Mild, HEADACHE & N/V, 10/11/20) Scheduled Alendronate Sodium* (Fosamax*), 1 TABLET PO Q7D, (Reported) Apixaban (Eliquis), 1 TAB PO BID@0800,1300, (Reported) Calcium Carbonate* (Oscal*), 2 TAB PO DAILY, (Reported) Carvedilol (Carvedilol), 1 TAB PO BID@0800,1300, (Reported) Divalproex Sodium (Divalproex Sodium ER), 1 TABLET PO DAILY@1300, (Reported) Estrogens,Conjugated (PREMARIN Vaginal Cream), 0.5 G VG Q48H, (Reported) Ferrous Sulfate (Ferrous Sulfate), 1 TAB PO DAILY, (Reported) Ipratropium Clark Nasal [place]* (Atrovent Nasal [place]*), 2 SPRAY NA BID, (Reported) Isosorbide Mononitrate (Isosorbide Mononitrate Er), 1 TAB PO DAILY@1300, (Reported) Lactobacillus Acidophilus (Probiotic), 1 EACH PO DAILY, (Reported) Levocarnitine (l-Carnitine), 0.5 TAB PO DAILY, (Reported) Levomefolate Calcium (l-Methylfolate), 1 TAB PO DAILY, (Reported) Multivitamin (Once Daily), 1 TAB PO DAILY, (Reported) Nitroglycerin (Nitroglycerin), 1 TAB SL UD, (Reported) Rosuvastatin Calcium (Rosuvastatin Calcium), 1 TAB PO DAILY@1300, (Reported) Past Medical History Past Medical History: Angina, Atrial Fibrillation, Coronary Artery Disease, High Cholesterol, Hypertension, Asthma Past Surgical History: noncontributory Patient History: FH: CHF (congestive heart failure) FATHER FH: HTN (hypertension) FATHER FH: myocardial infarction FATHER Alcohol Use: None Drug Use: none Lives with: Family Lives In: Home Physical Exam Vital Signs: Temperature: 97.0, Source: Temporal, Heart Rate: 69, Respiratory Rate: 16, BP: 176/89, Pulse Oximetry: 97, Weight: 56.820 Progress Results/Orders Results/Orders Vital Signs 04/10/25 04/10/25 15:17 18:39 Temp 97.0 98.7 Pulse 69 84 Resp 16 16 B/P (MAP) 176/89 141/85 (103) Pulse Ox 97 98 O2 Flow Rate 0 Laboratory Tests Test 04/10/25 15:12 04/10/25 18:38 04/10/25 18:59 White Blood Count 5.6 Red Blood Count 4.00 L Hemoglobin 13.4 Hematocrit 39.1 Mean Corpuscular Volume 97.9 Mean Corpuscular Hemoglobin 33.5 H Mean Corpuscular Hemoglobin Concent 34.3 Red Cell Distribution Width 14.0 Platelet Count 698 H Mean Platelet Volume 8.1 Neutrophils (%) (Auto) 57.8 Lymphocytes (%) (Auto) 28.0 Monocytes (%) (Auto) 11.3 Eosinophils (%) (Auto) 1.8 Basophils (%) (Auto) 1.1 H Neutrophils # (Auto) 3.3 Lymphocytes # (Auto) 1.6 Monocytes # (Auto) 0.6 Eosinophils # (Auto) 0.1 Basophils # (Auto) 0.1 CBC Comment Sodium Level 138 Potassium Level 4.6 Chloride Level 102 Carbon Dioxide Level 25.5 Anion Gap 11 Blood Urea Nitrogen 19 H Creatinine 0.96 H Estimated GFR/1.73 m2 55 BUN/Creatinine Ratio 19.8 Glucose Level 137 H Calcium Level 9.4 Troponin I High Sensitivity 9 8 7 Pro-B-Type Natriuretic Peptide 521 H Albumin 3.5 Chemistry Comments Troponin I High Sens Percent Delta 11 22 Troponin I Hi Sens Absolute Change -1 -2 Medical Decision Making Findings MSE performed in triage and patient returned to ED lobby by nursing staff, patient appears to have eloped Differential Dx:Considerations: Include: angina, chest wall pain, cholelithiasis, CHF, costochondritis, myocardial infarction, pericarditis, pneumonia, pneumothorax, pulmonary embolus Departure Impression: Primary Impression: Chest pain Qualified Codes: R07.9 - Chest pain, unspecified Referrals: NO PRIMARY CARE PROVIDER (PCP) Additional Comment Medical Screen Exam History: This 89-year-old female presents with two days of right-sided chest pain described as regularly intermittent every 10 minutes. Reports that the pain improves with Tylenol reporting it takes the edge off. Exam: VITALS: Reviewed and as above. GENERAL: Alert, nontoxic appearing, no apparent distress. RESPIRATORY: No increased work of breathing, no respiratory distress, speaking in full clear sentences MSE performed in triage and patient returned to ED lobby by nursing staff The note accurately reflects work and decisions made by me.DEBBIE Staples 04/10/25 15:41 Signature Scribe Signature: No scribe Attestation: The note accurately reflects work and decisions made by me.DEBBIE Staples 04/13/25 23:23 KELBY ATKINS Apr 10, 2025 15:41
[2025-04-10 16:47] LABS: BASOPHILS # (AUTO) 0.1 X10'3 (0-0.2); EOSINOPHILS # (AUTO) 0.1 X10'3 (0-0.9); MEAN CORPUSCULAR HEMOGLOBIN 33.5 PG (27.0-31.0); MEAN CORPUSCULAR HGB CONC 34.3 g/dL (33.0-36.5); MONOCYTES # (AUTO) 0.6 X10'3 (0-0.9)
[2025-04-10 16:49] LABS: BASOPHILS % (AUTO) 1.1 % (0-1); EOSINOPHILS % (AUTO) 1.8 % (0-6); HEMATOCRIT 39.1 % (35.0-45.0); HEMOGLOBIN 13.4 g/dl (12.0-16.0); LYMPHOCYTES # (AUTO) 1.6 X10'3 (1.1-4.8); MEAN CORPUSCULAR VOLUME 97.9 FL (78-98); MEAN PLATELET VOLUME 8.1 FL (7.4-10.4); MONOCYTES % (AUTO) 11.3 % (2-12); NEUTROPHILS # (AUTO) 3.3 X10'3 (1.8-7.7); NEUTROPHILS % (AUTO) 57.8 % (42-75); PLATELET COUNT 698 X10'3 (140-440); WHITE BLOOD COUNT 5.6 X10'3 (4.5-11.0)
--- NOTE | 2025-04-10 16:57 | RADIOLOGY REPORT ---
CHEST RADIOGRAPH Indication: CP Technique: Single frontal view of the chest was obtained COMPARISON: DI CHEST,SINGLE VIEW on DOS: 01/21/24, DI CHEST,SINGLE VIEW on DOS: 01/18/24, DI CHEST,SING LE VIEW on DOS: 01/15/24, DI CHEST,SINGLE VIEW on DOS: 09/13/23, DI CHEST,SINGLE VIEW on DOS: 09/09/23 FINDINGS: Lines and Tubes: None Lungs: Clear Pleura: No effusion. No pneumothorax. Cardiomediastinal contours: Unremarkable Bones: Unremarkable IMPRESSION: 1. No acute disease.
--- NOTE | 2025-04-10 17:02 | ELECTROCARDIOGRAPH REPORT ---
[facility] Test Date: 2025-04-10 Test Time: 15:02:16 Pat Name: SARAH GREENE Department: EMERGENCY ROOM [id number] Room: Gender: F Db2 Developer: LAW : 1935 Requested By: AMARIS HEATON Order Number: [id number] Reading MD: Measurements Intervals [place] Rate: 72 P: 62 TX: 184 QRS: 2 QRSD: 138 T: -32 QT: 406 QTc: 445 Interpretive Statements Sinus rhythm Atrial premature complex Right bundle branch block Please click the below link to view image of tracing.
[2025-04-10 17:32] LABS: ALBUMIN 3.5 G/DL (3.4-5.0); ANION GAP 11 (8-16); BLOOD UREA NITROGEN 19 MG/DL (7-18); BUN/CREATININE RATIO 19.8 (10.0-20.0); CALCIUM 9.4 MG/DL (8.5-10.1); CHLORIDE 102 MMOL/L (99-107); CREATININE 0.96 MG/DL (0.40-0.90); GLUCOSE 137 MG/DL (70-104); PRO BRAIN NATRIURETIC PEPTIDE 521 PG/ML (0-450); SODIUM 138 MMOL/L (135-145); TOTAL CARBON DIOXIDE 25.5 MMOL/L (24-32); eCRCL 29 ML/MIN; eGFR 55 ML/MIN
[2025-04-10 17:38] LABS: POTASSIUM 4.6 MMOL/L (3.5-5.1)
[2025-04-10 18:39] VITALS: BP 141/85; PULSE 84; RESP 16; TEMP 98.7; O2SAT 98
== END 2025-04-10 22:50 | disposition left against medical advice (07) ==
LOC: ER 14:56
DX: R07.9 Chest pain, unspecified (principal); E78.00 Pure hypercholesterolemia, unspecified; I10 Essential (primary) hypertension; R06.02 Shortness of breath; I25.10 Atherosclerotic heart disease of native coronary artery without angina pectoris; I48.91 Unspecified atrial fibrillation; J45.909 Unspecified asthma, uncomplicated; Z88.0 Allergy status to penicillin; Z88.1 Allergy status to other antibiotic agents; Z88.2 Allergy status to sulfonamides
CPT/HCPCS: 36415; 71045; 80048; 83880; 84484; 85025; 93005; 99285